=== PATIENT | male | born 1965 | race Two or more races ===

== ENCOUNTER 2016-05-05 01:46 | Inpatient (IN) | payer SELFPAY ==
[2016-05-05] MEDS ORDERED: HYDROMORPHONE HCL INJ/PF 2 MG/ML AMPULE IV ONE (03:32)
[2016-05-05] MEDS ORDERED: ONDANSETRON HCL INJ/PF 4 MG/2 ML SDV IV ONE (03:32)
[2016-05-05 03:46] LABS: ABSOLUTE BASOPHILS # (AUTO) 0.1 10^3/uL (0.0-0.2); ABSOLUTE EOSINOPHILS # (AUTO) 0.1 10^3/uL (0.0-0.6); ABSOLUTE LYMPHOCYTES (AUTO) 1.4 10^3/uL (0.5-4.7); ABSOLUTE MONOCYTES (AUTO) 0.6 10^3/uL (0.1-1.4); BASOPHILS % (AUTO) 0.5 % (0-2); EOSINOPHILS % (AUTO) 0.7 % (0-6); HEMATOCRIT 45.4 % (37.9-51.0); HEMOGLOBIN 15.3 g/dL (13.5-17.0); HGB HCT DIFFERENCE 0.5; LYMPHOCYTES % (AUTO) 12.5 % (13-45); MEAN CORPUSCULAR HEMOGLOBIN 27.6 pg (27.0-33.4); MEAN CORPUSCULAR HGB CONC 33.7 g/dL (32.0-36.0); MEAN CORPUSCULAR VOLUME 82 fl (80-97); MONOCYTES % (AUTO) 5.3 % (3-13); RED BLOOD COUNT 5.54 10^6/uL (4.35-5.55); RED CELL DISTRIBUTION WIDTH 14.2 % (11.5-14.0); WHITE BLOOD COUNT 11.1 10^3/uL (4.0-10.5)
[2016-05-05 03:57] LABS: ALANINE AMINOTRANSFERASE 60 U/L (21-72); ALBUMIN 4.2 g/dL (3.5-5.0); ALKALINE PHOSPHATASE 127 U/L (38-126); ANION GAP 16 (5-19); ASPARTATE AMINO TRANSFERASE 23 U/L (17-59); BILIRUBIN,TOTAL 0.7 mg/dL (0.2-1.3); BLOOD UREA NITROGEN 17 mg/dL (7-20); CALCIUM 9.8 mg/dL (8.4-10.2); CARBON DIOXIDE 26 mmol/L (22-30); CHLORIDE 99 mmol/L (98-107); CREATININE RESULT 0.53 mg/dL (0.52-1.25); GLUCOSE 291 mg/dL (75-110); POTASSIUM 4.4 mmol/L (3.6-5.0); SODIUM 141.2 mmol/L (137-145); TOTAL PROTEIN 7.4 g/dL (6.3-8.2)
--- NOTE | 2016-05-05 05:56 | ER Document Report ---
ED General - General Chief Complaint: Abdominal Pain Stated Complaint: ABDOMINAL PAIN Notes: Patient is a 50-year-old male who presents with complaint of abdominal pain, vomiting, and no bowel movement. He says his symptoms feel exactly like when he had a small bowel obstruction in October. Patient was admitted here and treated nonsurgically and did well. Patient says that the symptoms started around 11 AM. His abdomen became very distended. He has not passed any gas. He's been vomiting. No blood in his emesis. Last bowel movement was this morning before his symptoms started. He does have a history of previous abnormal surgery. He said many years ago and part of his large intestine removed. He is unsure why it was removed. TRAVEL OUTSIDE OF THE [place] IN LAST 30 DAYS: No - Related Data Allergies/Adverse Reactions: No Known Allergies Allergy (Verified 10/24/15 10:21) Past Medical History - General Information source: Patient - Social History Smoking Status: Unknown if Ever Smoked Chew tobacco use (# tins/day): No Frequency of alcohol use: Rare Drug Abuse: None Family History: Reviewed & Not Pertinent Patient has suicidal ideation: No Patient has homicidal ideation: No Past Surgical History: Reports: Hx Abdominal Surgery - resection, Hx Appendectomy - Immunizations Hx Diphtheria, Pertussis, Tetanus Vaccination: No Review of Systems - Review of Systems Notes: My Normal Review Basic REVIEW OF SYSTEMS: CONSTITUTIONAL : Denies fever, chills, or sweats. Denies recent illness. EENT: Denies eye, ear, throat, or mouth pain or symptoms. Denies nasal or sinus congestion. CARDIOVASCULAR: Denies chest pain. RESPIRATORY: Denies cough, cold, or chest congestion. Denies shortness of breath, difficulty breathing, or wheezing. GASTROINTESTINAL: Diffuse abdominal pain and distention. Some recurrent vomiting. MUSCULOSKELETAL: Denies neck or back pain or joint pain or swelling. SKIN: Denies rash or skin lesions. NEUROLOGICAL: Denies altered mental status or loss of consciousness. Denies headache. Denies weakness or paralysis or loss of use of either side. Denies problems with gait or speech. Denies sensory or motor loss. ALL OTHER SYSTEMS REVIEWED AND NEGATIVE. Physical Exam - Vital signs Vitals: Temp Pulse Resp BP Pulse Ox 97.4 F 98 20 129/77 H 100 05/05/16 03:16 05/05/16 03:16 05/05/16 03:16 05/05/16 03:16 05/05/16 03:16 - Notes Notes: General Appearance: Well nourished, alert, cooperative, no acute distress, no obvious discomfort. Vitals: reviewed, See vital signs table. Head: no swelling or tenderness to the head Eyes: PERRL, EOMI, Conjuctiva clear Mouth: No decreasd moisture Neck: Supple, no neck tenderness, Lungs: No wheezing, No rales, No rhonci, No accessory muscle use, good air exchange bilaterally. Heart: Normal rate, Regular rythm, No murmur, no rub Abdomen: Normal BS, soft, No rigidity, moderate diffuse abdominal tenderness, some distention, No guarding, no rebound, no abdominal masses, no organomegaly Extremities: strength 5/5 in all extremities, good pulses in all extremities, no swelling or tenderness in the extremities, no edema. Skin: warm, dry, appropriate color, no rash Neuro: speech clear, oriented x 3, normal affect, responds appropriately to questions. Course - Vital Signs Vital signs: Temp Pulse Resp BP Pulse Ox 97.4 F 98 20 129/77 H 100 05/05/16 03:16 05/05/16 03:16 05/05/16 03:16 05/05/16 03:16 05/05/16 03:16 - Laboratory Result Diagrams: 05/05/16 03:20 05/05/16 03:20 Laboratory results interpreted by me: 05/05/16 05/05/16 03:20 03:20 WBC 11.1 H RDW 14.2 H Seg Neutrophils % 81.0 H Lymphocytes % 12.5 L Absolute Neutrophils 9.0 H Glucose 291 H Alkaline Phosphatase 127 H - Transfer of Care Notes: 05/05/16 07:44 Patient appears to have a bowel obstruction both clinically and on CT scan. We' ll place an NG tube. I did speak with Dr. Holliday, general surgeon, who agrees to come evaluate the patient. Dictation of this chart was performed using voice recognition software; therefore, there may be some unintended grammatical errors. 05/05/16 07:55 Discharge - Discharge Clinical Impression: SBO (small bowel obstruction) Abdominal pain Qualifiers: Abdominal location: generalized Qualified Code(s): R10.84 - Generalized abdominal pain Nausea & vomiting Qualifiers: Vomiting type: unspecified Vomiting Intractability: non-intractable Qualified Code(s): R11.2 - Nausea with vomiting, unspecified Condition: Stable Disposition: ADMITTED INPATIENT Admitting Provider: Surgicalist Unit Admitted: Surgical Floor
[2016-05-05] MEDS ORDERED: NORMAL SALINE 1000 ML 1,000 ML IV ONE (07:42)
--- NOTE | 2016-05-05 08:27 | PDOC H&P ---
History of Present Illness Admission Date/PCP: 05/05/16 07:53 Patient complains of: Abdominal pain, distention History of Present Illness: OSMAR LANDRY is a 50 year old male is seen in the emergency department after being brought to the hospital by ground rescue complaining of acute onset abdominal pain, distention. Last bowel movement was last night. This is associated with nausea and several episodes of vomiting. Symptoms are identical to those associated with a partial small bowel obstruction presentation in October 2015. Patient was admitted to the surgical service, treated nonoperatively did well until last night. Patient denies history of trauma, intervening episodes of abdominal pain or nausea or vomiting. Does not have a local medical doctor. Past Medical History Endocrine Medical History: Reports: Diabetes Mellitus Type 2 Past Surgical History Past Surgical History: Reports: Appendectomy, Other - Exploratory laparotomy, bowel resection of uncertain location, 2000, [place] Social History Smoking Status: Unknown if Ever Smoked Cigarettes Packs Per Day: 20 Frequency of Alcohol Use: None Drugs: None Hx Prescription Drug Abuse: No Family History Family History: Reviewed & Not Pertinent, Other - There is no history of inflammatory bowel disease Parental Family History Reviewed: Yes Children Family History Reviewed: Yes Sibling(s) Family History Reviewed.: Yes Medication/Allergy Home Medications: Ibuprofen 800 mg PO Q8H PRN 10/24/15 Metformin HCl [Glucophage 500 mg Tablet] 500 mg PO BIDACBS #60 tablet 10/28/15 Allergies/Adverse Reactions: No Known Allergies Allergy (Verified 10/24/15 10:21) Physical Exam Vital Signs: Temp Pulse Resp BP Pulse Ox 97.9 F 88 16 130/81 H 99 05/05/16 07:43 05/05/16 07:43 05/05/16 07:43 05/05/16 07:43 05/05/16 07:43 General appearance: PRESENT: severe distress Head exam: PRESENT: normocephalic Eye exam: PRESENT: EOMI Ear exam: PRESENT: normal external ear exam Mouth exam: PRESENT: moist Teeth exam: PRESENT: poor dentation, other - Severe dental caries Neck exam: PRESENT: full ROM Respiratory exam: PRESENT: clear to auscultation payton Vascular exam: PRESENT: normal capillary refill GI/Abdominal exam: PRESENT: other - The midline scar well healed without hernia ; abdomen is moderately distended; positive abdomen. Mild guarding but no rigidity, no rebound tenderness. Rectal exam: PRESENT: deferred Musculoskeletal exam: PRESENT: ambulatory Neurological exam: PRESENT: alert, altered, awake Psychiatric exam: PRESENT: appropriate affect Results Impressions: Abdomen/Pelvis CT 05/05/16 00:00 IMPRESSION: 1. Multiple dilated with loops of small bowel are noted within the lower abdomen/pelvis could represent an area of focal partial small bowel obstruction versus an area of slow transit. The loops both distal are not completely decompressed prior to the new ileal colonic anastomosis. The loops proximal this region are not significantly dilated. No pneumoperitoneum or intra-abdominal fluid noted. No mass lesions. Overall appearance appears similar to the prior CT study. Prior right colectomy. 2. Ectopic left kidney, unchanged. Acute Abdomen Series 05/05/16 02:28 IMPRESSION: NO RADIOGRAPHIC EVIDENCE FOR ACUTE ABDOMINAL DISEASE. Assessment & Plan - Diagnosis (1) SBO (small bowel obstruction) Is this a current diagnosis for this admission?: YesPlan: 1. Second episode in 6 months; obstruction appears to be partial or incomplete , with site of obstruction distal small bowel, although this is somewhat vague 2. Will admit patient to surgical service, keep nothing by mouth, inserted nasogastric tube, resuscitate with IV fluids. 3. The patient does not improve clinically, then further evaluation including possible exporatory laparotomy may be required. (2) Hyperglycemia Is this a current diagnosis for this admission?: YesPlan: 1. Will place patient on sliding scale insulin management. (3) Smoker Is this a current diagnosis for this admission?: YesPlan: 1. To discuss smoking cessation while hospitalized. (4) Status post right colon removal Is this a current diagnosis for this admission?: YesPlan: 1. Remote history of right colon resection, similarly for benign disease. Patient does not appear to have a colonic obstruction. - Time Time Spent: 50 to 70 Minutes Critical Time spent with patient: 15-24 minutes - Inpatient Certification Medical Necessity: Need For IV Fluids, Need for Pain Control
[2016-05-05] MEDS: ONDANSETRON HCL INJ/PF 4 MG/2 ML SDV IV PRN ×2 (08:40→13:35)
[2016-05-05] MEDS: MORPHINE SULFATE 10 MG/ML INJ IV PRN ×2 (08:40→12:00)
[2016-05-05] MEDS: RINGERS SOLUTION,LACTATED 1,000 ML IV PRN ×4 (10:15→22:09)
[2016-05-05] MEDS: FAMOTIDINE INJ/PF 20 MG/2 ML SDV IV SCH ×2 (10:15→22:09)
[2016-05-05] MEDS ORDERED: INFLUENZA ADLT QUAD (36MOS+) 2016-17 VAC 0.5 ML SYR IM PRN (15:24)
[2016-05-06] MEDS: MORPHINE SULFATE 10 MG/ML INJ IV PRN ×2 (00:05→13:34)
--- NOTE | 2016-05-06 08:02 | PDOC PROGRESS REPORT ---
Subjective Progress Note for:: 05/06/16 Subjective:: Patient is feeling better, no nausea, improved abdominal pain. No fever. Physical Exam Vital Signs: Temp Pulse Resp BP Pulse Ox 98.1 F 91 18 131/76 H 98 05/06/16 00:06 05/06/16 00:06 05/06/16 00:06 05/06/16 00:06 05/06/16 00:06 Intake & Output 05/05/16 05/06/16 05/07/16 06:59 06:59 06:59 Intake Total 4311 Output Total 400 Balance 3911 Weight 63.5 kg General appearance: PRESENT: no acute distress, cooperative Head exam: PRESENT: atraumatic, normocephalic Respiratory exam: PRESENT: clear to auscultation payton GI/Abdominal exam: PRESENT: soft, tenderness - mild. ABSENT: firm, guarding, hernia, rigid Rectal exam: PRESENT: deferred Extremities exam: ABSENT: calf tenderness Results Impressions: Abdomen/Pelvis CT 05/05/16 00:00 IMPRESSION: 1. Multiple dilated with loops of small bowel are noted within the lower abdomen/pelvis could represent an area of focal partial small bowel obstruction versus an area of slow transit. The loops both distal are not completely decompressed prior to the new ileal colonic anastomosis. The loops proximal this region are not significantly dilated. No pneumoperitoneum or intra-abdominal fluid noted. No mass lesions. Overall appearance appears similar to the prior CT study. Prior right colectomy. 2. Ectopic left kidney, unchanged. Chest X-Ray 05/05/16 00:00 IMPRESSION: Repositioned nasogastric tube now looks more appropriate. Consider slight advancement. Acute Abdomen Series 05/05/16 02:28 IMPRESSION: NO RADIOGRAPHIC EVIDENCE FOR ACUTE ABDOMINAL DISEASE. Assessment & Plan - Diagnosis (1) Abdominal pain Qualifiers: Abdominal location: generalized Qualified Code(s): R10.84 - Generalized abdominal pain Is this a current diagnosis for this admission?: YesPlan: Improving. (2) SBO (small bowel obstruction) Is this a current diagnosis for this admission?: YesPlan: Patient is feeling better, + flatus last night, NGT output 350 ml over night. KUB this morning reveal oral contrast in the colon. Plan: Clamp NGT and check residual after 6 hours, OOB, ambulate, IV fluids. Strict ins /outs.
[2016-05-06] MEDS ORDERED: BISACODYL 10 MG SUPP.RECT PR ONE (09:00)
[2016-05-06] MEDS: FAMOTIDINE INJ/PF 20 MG/2 ML SDV IV SCH ×2 (09:41→21:59)
[2016-05-06] MEDS: BISACODYL 10 MG SUPP.RECT PR SCH (22:00)
[2016-05-06] MEDS: RINGERS SOLUTION,LACTATED 1,000 ML IV PRN (23:30)
[2016-05-07] MEDS: BISACODYL 10 MG SUPP.RECT PR SCH (09:41)
[2016-05-07] MEDS: FAMOTIDINE INJ/PF 20 MG/2 ML SDV IV SCH (09:41)
[2016-05-07 20:26] VITALS: BP 128/69
--- NOTE | 2016-05-07 20:32 | PDOC DISCHARGE SUMMARY ---
General - Admit/Disc Date/PCP Admission Date/Primary Care Provider: 05/05/16 08:11 Discharge Date: 05/07/16 - Discharge Diagnosis (1) SBO (small bowel obstruction) Is this a current diagnosis for this admission?: YesSummary: 50-year-old male admitted on 05/05/2016 with small bowel obstruction. NG tube was placed. Nothing by mouth. IV fluids. Patient's pain resolved. No further nausea or vomiting. NG tube was clamped and then removed. Diet was advanced. Patient tolerated well. The patient had bowel movement and was passing flatus and had no pain. Patient was discharged on 05/07/2016. (2) Smoker Is this a current diagnosis for this admission?: Yes (3) Status post right colon removal Is this a current diagnosis for this admission?: Yes - Additional Information Discharge Activity: Activity As Tolerated, Balance Activity w/Rest Home Medications: No Home Medications 05/05/16 History of Present Illness History of Present Illness: OSMAR LANDRY is a 50 year old male is seen in the emergency department after being brought to the hospital by ground rescue complaining of acute onset abdominal pain, distention. Last bowel movement was last night. This is associated with nausea and several episodes of vomiting. Symptoms are identical to those associated with a partial small bowel obstruction presentation in October 2015. Patient was admitted to the surgical service, treated nonoperatively did well until last night. Patient denies history of trauma, intervening episodes of abdominal pain or nausea or vomiting. Hospital Course Hospital Course: 50-year-old male admitted on 05/05/2016 with small bowel obstruction. NG tube was placed. Nothing by mouth. IV fluids. Patient's pain resolved. No further nausea or vomiting. NG tube was clamped and then removed. Diet was advanced. Patient tolerated well. The patient had bowel movement and was passing flatus and had no pain. Patient was discharged on 05/07/2016. Physical Exam Vital Signs: Temp Pulse Resp BP Pulse Ox 98.3 F 73 17 128/69 H 99 05/07/16 20:23 05/07/16 20:23 05/07/16 20:23 05/07/16 20:23 05/07/16 20:23 Intake & Output 05/06/16 05/07/16 05/08/16 06:59 06:59 06:59 Intake Total 4311 2200 1400 Output Total 400 Balance 3911 2200 1400 Weight 63.5 kg 64.2 kg General appearance: PRESENT: no acute distress Eye exam: PRESENT: EOMI Mouth exam: PRESENT: tongue midline Teeth exam: PRESENT: poor dentation Respiratory exam: PRESENT: unlabored GI/Abdominal exam: PRESENT: normal bowel sounds, soft. ABSENT: distended, tenderness Neurological exam: PRESENT: alert, oriented to person, oriented to place, oriented to time, oriented to situation Psychiatric exam: PRESENT: appropriate affect, normal mood Skin exam: ABSENT: jaundice Results Impressions: Abdomen/Pelvis CT 05/05/16 00:00 IMPRESSION: 1. Multiple dilated with loops of small bowel are noted within the lower abdomen/pelvis could represent an area of focal partial small bowel obstruction versus an area of slow transit. The loops both distal are not completely decompressed prior to the new ileal colonic anastomosis. The loops proximal this region are not significantly dilated. No pneumoperitoneum or intra-abdominal fluid noted. No mass lesions. Overall appearance appears similar to the prior CT study. Prior right colectomy. 2. Ectopic left kidney, unchanged. Chest X-Ray 05/05/16 00:00 IMPRESSION: Repositioned nasogastric tube now looks more appropriate. Consider slight advancement. Acute Abdomen Series 05/05/16 02:28 IMPRESSION: NO RADIOGRAPHIC EVIDENCE FOR ACUTE ABDOMINAL DISEASE. Abdomen X-Ray 05/06/16 07:00 IMPRESSION: Oral contrast given for CT exam 05/05/2016 is now in the transverse colon Few borderline dilated mid epigastric small bowel loops, less prominent than on plain films 05/05/2016. Plan Discharge Plan: Resume home meds; no changes to medications; no new medications. Continue soft/ mostly liquid diet. Ambulate frequently. Follow-up when necessary. Time Spent: Less than 30 Minutes - 25 minutes were spent on the day of discharge and patient care and discharge activity.
== END 2016-05-07 21:00 | disposition home or self-care (01) | DRG 390 ==
LOC: ER 01:46 → EH 07:53 → UNDOADMIN 07:53 → EH 08:11 → 4S 13:28
PROVIDERS: ATTEND Surgery
PROC: 0D9670Z Drainage of Stomach with Drainage Device, Via Natural or Artificial Opening (ICD-10-PCS; principal; 2016-05-05)
DX: K56.60 Unspecified intestinal obstruction (principal); Z98.0 Intestinal bypass and anastomosis status; E11.65 Type 2 diabetes mellitus with hyperglycemia; Z79.84 Long term (current) use of oral hypoglycemic drugs; Z90.49 Acquired absence of other specified parts of digestive tract; F17.210 Nicotine dependence, cigarettes, uncomplicated; Z91.018 Allergy to other foods
CPT/HCPCS: 36415; 71010; 74020; 74022; 74177; 80053; 82962; 83605; 83690; 85025; 90686; 96374; 96375; 99285; J1170; J2270; J2405; J7030; J7120; S0028

== ENCOUNTER 2017-06-07 23:09 | Inpatient (IN) | payer OTHER ==
[2017-06-07] MEDS ORDERED: NORMAL SALINE 1000 ML 1,000 ML IV ONE (23:41)
[2017-06-07] MEDS ORDERED: ONDANSETRON HCL INJ/PF 4 MG/2 ML SDV IV ONE (23:42)
[2017-06-08 00:05] LABS: ABSOLUTE BASOPHILS # (AUTO) 0.1 10^3/uL (0.0-0.2); ABSOLUTE EOSINOPHILS # (AUTO) 0.1 10^3/uL (0.0-0.6); ABSOLUTE LYMPHOCYTES (AUTO) 2.8 10^3/uL (0.5-4.7); ABSOLUTE MONOCYTES (AUTO) 0.5 10^3/uL (0.1-1.4); BASOPHILS % (AUTO) 1.1 % (0-2); EOSINOPHILS % (AUTO) 1.2 % (0-6); HEMATOCRIT 47.3 % (37.9-51.0); HEMOGLOBIN 16.4 g/dL (13.5-17.0); LYMPHOCYTES % (AUTO) 32.9 % (13-45); MEAN CORPUSCULAR HEMOGLOBIN 28.8 pg (27.0-33.4); MEAN CORPUSCULAR HGB CONC 34.6 g/dL (32.0-36.0); MEAN CORPUSCULAR VOLUME 83 fl (80-97); PLATELET COUNT 261 10^3/uL (150-450); RED CELL DISTRIBUTION WIDTH 13.9 % (11.5-14.0); SEGMENTED NEUTROPHILS % (AUTO) 58.8 % (42-78); TOTAL CELLS COUNTED % (AUTO) 100 %; WHITE BLOOD COUNT 8.4 10^3/uL (4.0-10.5)
[2017-06-08] MEDS: MORPHINE SULFATE 10 MG/ML INJ IV PRN ×6 (00:20→18:42)
[2017-06-08 00:24] LABS: ALANINE AMINOTRANSFERASE 53 U/L (21-72); ALBUMIN 4.8 g/dL (3.5-5.0); ALKALINE PHOSPHATASE 129 U/L (38-126); ANION GAP 13 (5-19); ASPARTATE AMINO TRANSFERASE 24 U/L (17-59); BILIRUBIN,DIRECT 0.2 mg/dL (0.0-0.4); BILIRUBIN,TOTAL 0.4 mg/dL (0.2-1.3); BLOOD UREA NITROGEN 14 mg/dL (7-20); CARBON DIOXIDE 25 mmol/L (22-30); CHLORIDE 99 mmol/L (98-107); GLUCOSE 316 mg/dL (75-110); LIPASE 196.2 U/L (23-300); POTASSIUM 4.1 mmol/L (3.6-5.0); SODIUM 136.7 mmol/L (137-145); TOTAL PROTEIN 7.7 g/dL (6.3-8.2)
[2017-06-08 00:30] LABS: APPEARANCE,URINE CLEAR; BILIRUBIN,URINE NEGATIVE (NEGATIVE); COLOR,URINE YELLOW; GLUCOSE, URINE >=500 mg/dL (NEGATIVE); KETONES,URINE 20 mg/dL (NEGATIVE); LEUKOCYTE ESTERASE,URINE NEGATIVE (NEGATIVE); NITRITE,URINE NEGATIVE (NEGATIVE); PROTEIN,URINE NEGATIVE (NEGATIVE); UROBILINOGEN,URINE NEGATIVE mg/dL (<2.0)
--- NOTE | 2017-06-08 00:51 | ER Document Report ---
ED General - General Chief Complaint: Abdominal Pain Stated Complaint: ABDOMINAL PAIN Time Seen by Provider: 06/07/17 23:41 Notes: Patient is a 51-year-old male with a past medical history of recurrent small bowel obstructions, a history of a partial right colon resection, as well as an appendectomy who presents with 24 hours of progressively worsening generalized abdominal pain with associated vomiting. Patient states that the symptoms started earlier today and have gotten progressively worse since that time. Nothing improves or worsens his symptoms. He notes the pain is a dull, aching, cramping pain. He has not seen his primary doctor regarding today's concerns. He states that this feels exactly the same as when he has had small bowel obstructions in the past. He denies any fever or constitutional symptoms. TRAVEL OUTSIDE OF THE [place] IN LAST 30 DAYS: No - Related Data Allergies/Adverse Reactions: Kiwi Allergy (Intermediate, Uncoded 05/05/16 16:25) Hives Past Medical History - General Information source: Patient - Social History Smoking Status: Current Every Day Smoker Frequency of alcohol use: None Drug Abuse: None Family History: Reviewed & Not Pertinent, Other - There is no history of inflammatory bowel disease Endocrine Medical History: Reports: Hx Diabetes Mellitus Type 2 Past Surgical History: Reports: Hx Abdominal Surgery - resection, Hx Appendectomy, Other - Exploratory laparotomy, bowel resection of uncertain location, [facility] - Immunizations Hx Diphtheria, Pertussis, Tetanus Vaccination: No Review of Systems - Review of Systems Notes: Constitutional: Negative for fever. HENT: Negative for sore throat. Eyes: Negative for visual changes. Cardiovascular: Negative for chest pain. Respiratory: Negative for shortness of breath. Gastrointestinal: Positive for abdominal pain and vomiting Genitourinary: Negative for dysuria. Musculoskeletal: Negative for back pain. Skin: Negative for rash. Neurological: Negative for headaches, weakness or numbness. 10 point ROS negative except as marked above and in HPI. Physical Exam - Vital signs Vitals: Temp Pulse Resp BP Pulse Ox 98.4 F 107 H 22 H 144/92 H 99 06/07/17 23:19 06/07/17 23:19 06/07/17 23:19 06/07/17 23:19 06/07/17 23:19 Interpretation: Hypertensive, Tachycardic Notes: PHYSICAL EXAMINATION: GENERAL: Appears moderately uncomfortable but in no acute distress HEAD: Atraumatic, normocephalic. EYES: Pupils equal round and reactive to light, extraocular movements intact, sclera anicteric, conjunctiva are normal. ENT: nares patent, oropharynx clear without exudates. Dry mucous membranes. NECK: Normal range of motion, supple without lymphadenopathy LUNGS: Breath sounds clear to auscultation bilaterally and equal. No wheezes rales or rhonchi. HEART: Regular rate and rhythm without murmurs ABDOMEN: Soft, distended, diffuse generalized mild tenderness without any areas of rebound or guarding. EXTREMITIES: Normal range of motion, no pitting or edema. No cyanosis. NEUROLOGICAL: No focal neurological deficits. Moves all extremities spontaneously and on command. PSYCH: Normal mood, normal affect. SKIN: Warm, Dry, normal turgor, no rashes or lesions noted. Course - Re-evaluation Re-evalutation: 06/08/17 00:50 Patient presents with acute onset of generalized abdominal pain with associated vomiting concerning for recurrence of a small bowel obstruction that he has had repeatedly in the past. Abdomen is slightly distended but bowel sounds are present. He does have generalized tenderness to palpation of the central abdomen. No rebound or guarding. Vitals are within normal limits at the time of my assessment that he was initially tachycardic at time of presentation. Will proceed with CT abdomen pelvis and reassess 06/08/17 02:08 CT abdomen pelvis as show findings consistent with my presumed diagnosis of a small bowel obstruction. Labs are otherwise overall unremarkable. I have contacted the surgeon [employer] who has accepted the patient for admission. NG tube will be placed. - Vital Signs Vital signs: Temp Pulse Resp BP Pulse Ox 98.4 F 107 H 22 H 144/92 H 99 06/07/17 23:19 06/07/17 23:19 06/07/17 23:19 06/07/17 23:19 06/07/17 23:19 - Laboratory Result Diagrams: 06/07/17 23:48 06/07/17 23:48 Laboratory results interpreted by me: 06/07/17 06/07/17 06/07/17 23:48 23:48 23:48 RBC 5.70 H Sodium 136.7 L Glucose 316 H Hemoglobin A1c % 11.7 H Alkaline Phosphatase 129 H Urine Glucose (UA) Urine Ketones 06/08/17 00:16 RBC Sodium Glucose Hemoglobin A1c % Alkaline Phosphatase Urine Glucose (UA) >=500 H Urine Ketones 20 H - Diagnostic Test Radiology reviewed: Reports reviewed Discharge - Discharge Clinical Impression: SBO (small bowel obstruction), Hyperglycemia Abdominal pain Qualifiers: Abdominal location: generalized Qualified Code(s): R10.84 - Generalized abdominal pain Nausea & vomiting Qualifiers: Vomiting type: unspecified Vomiting Intractability: non-intractable Qualified Code(s): R11.2 - Nausea with vomiting, unspecified Condition: Fair Disposition: ADMITTED INPATIENT Admitting Provider: Surgicalist - Appresai Unit Admitted: Surgical Floor
--- NOTE | 2017-06-08 01:54 | RADIOLOGY REPORT (SQ) ---
EXAM DESCRIPTION: CT ABD/PELVIS WITH IV ONLY COMPLETED DATE/TIME: 06/08/2017 1:27 am REASON FOR STUDY: eval sbo . Diffuse abdominal pain, prior appendectomy. COMPARISON: CT abdomen and pelvis 05/05/2016, 10/24/2015. TECHNIQUE: CT scan of the abdomen and pelvis performed using helical scanning technique with dynamic intravenous contrast injection. No oral contrast. Images reviewed with lung, soft tissue, and bone windows. Reconstructed coronal and sagittal MPR images reviewed. Delayed images for evaluation of the urinary system also acquired. All images stored on PACS. All CT scanners at this facility use dose modulation, iterative reconstruction, and/or weight based d osing when appropriate to reduce radiation dose to as low as reasonably achievable (ALARA). [facility]: Dose Right [facility]: CareDose [facility]: Dose Right [facility]: Teradose 4D [facility]: Modria CONTRAST TYPE AND DOSE: contrast/concentration: Isovue 370.00 mg/ml; Total Contrast Delivered: 64.0 ml; Total Saline Delivered: 66.0 ml RENAL FUNCTION: None required. The patient is less than 50 years old. RADIATION DOSE: CT Rad equipment meets quality standard of care and radiation dose reduction techniq ues were employed. CTDIvol: 5.2 mGy. DLP: 547 mGy-cm.. LIMITATIONS: None. FINDINGS: LOWER CHEST: Mild bibasilar atelectasis. No pleural effusion. LIVER: Normal size. No masses. No dilated ducts. SPLEEN: Normal size. PANCREAS: No significant calcifications. No adjacent inflammation or peripancreatic fluid collections . Pancreatic duct not dilated. GALLBLADDER: No identified stones by CT criteria. No inflammatory changes to suggest cholecystitis. ADRENAL GLANDS: No significant masses or asymmetry. RIGHT KIDNEY AND URETER: No significant calcifications. No hydronephrosis or hydroureter. 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 No significant calcifications. No hydronephrosis or hydroureter. AORTA AND VESSELS: No abdominal aortic aneurysm. RETROPERITONEUM: No retroperitoneal adenopathy, hemorrhage or masses. BOWEL AND PERITONEAL CAVITY: The stomach distended. There are multiple dilated small bowel loops wit h air-fluid levels. Feces like material distending the small bowel in the midline lower abdomen. Ch danielle in caliber of small bowel loops is seen anteriorly in the mid abdomen, to the right of the umbil icus. The distal small bowel is collapsed. Postsurgical changes are noted at bowel loops at the rig ht lower quadrant. APPENDIX: Surgically absent. PELVIS: The urinary bladder is partially distended. Coarse calcifications are seen at the prostate. No free fluid. ABDOMINAL WALL: Small fat containing umbilical hernia. BONES: No acute findings. IMPRESSION: 1. Multiple dilated small bowel loops with air-fluid levels and feces like material, wo rrisome for distal small bowel obstruction, probable transition point in the anterior midabdomen to t he right of the umbilicus. 2. Malrotated ectopic left kidney. TECHNICAL DOCUMENTATION: JOB ID: [id number] Quality ID # [id number]: Final reports with documentation of one or more dose reduction techniques (e.g., Au tomated exposure control, adjustment of the mA and/or kV according to patient size, use of iterative reconstruction technique) 2010 [employer]- All Rights Reserved
[2017-06-08] MEDS ORDERED: LIDOCAINE 2% VISCOUS SOLN 20 ML UDCUP PO ONE (02:07)
[2017-06-08] MEDS ORDERED: MIDAZOLAM 2 MG/2 ML INJ IV ONE (02:07)
--- NOTE | 2017-06-08 04:31 | RADIOLOGY REPORT (SQ) ---
EXAM DESCRIPTION: CHEST SINGLE VIEW COMPLETED DATE/TIME: 06/08/2017 4:02 am REASON FOR STUDY: NG placement COMPARISON: Chest x-ray 05/05/2016. CT abdomen and pelvis 06/08/2017. EXAM PARAMETERS: NUMBER OF VIEWS: One view. TECHNIQUE: Frontal radiographic view of the chest/upper abdomen acquired. RADIATION DOSE: NA LIMITATIONS: None. FINDINGS: LUNGS AND PLEURA: No consolidation, pneumothorax or pleural effusion. MEDIASTINUM AND HILAR STRUCTURES: No masses. Contour normal. HEART AND VASCULAR STRUCTURES: Heart normal in size. Normal vasculature. BONES: No acute findings. HARDWARE: Enteric tube with the tip at the right upper quadrant, in the region of the gastroduodenal junction. OTHER: Gaseous distension of the small bowel in the visualized abdomen. IMPRESSION: 1. No acute radiographic finding in the chest. 2. Enteric tube with the tip at the gastroduodenal junction. Persistent gaseous distension of the sm all bowel in the visualized abdomen. TECHNICAL DOCUMENTATION: JOB ID: [id number] [employer]- All Rights Reserved
[2017-06-08] MEDS ORDERED: NORMAL SALINE 1000 ML 1,000 ML IV PRN (07:19)
[2017-06-08] MEDS ORDERED: DEXTROSE 40% GEL 15 GM TUBE PO PRN ×2 (08:08)
[2017-06-08] MEDS ORDERED: DEXTROSE 50%-WATER 25 GM/50 ML DISP.SYRIN IV PRN ×2 (08:08)
[2017-06-08] MEDS ORDERED: GLUCAGON,HUMAN RECOMB 1 MG INJ SUBCUT PRN (08:08)
[2017-06-08] MEDS ORDERED: ONDANSETRON HCL INJ/PF 4 MG/2 ML SDV IV PRN ×2 (08:08→13:30)
--- NOTE | 2017-06-08 08:08 | PDOC H&P ---
History of Present Illness Admission Date/PCP: 06/08/17 02:23 Patient complains of: Colicky abdominal pain x 1 day History of Present Illness: OSMAR LANDRY is a 51 year old male previously admitted here about one year ago with adhesive partial small bowel obstruction who presents with colicky abdominal pain that started last night he also had a single episode of vomiting. The pain is periumbilical, rated as an 8-10 /10 in severity; it has improved slightly this morning. He had just one episode of vomiting last night, it was non bloody. He had a regular bowel movement yesterday evening. He does not report any fever. A CT abdomen performed in the ER showed some dilated small bowel loops with fecalization of the distal small bowel. He has a history of appendectomy performed in [facility] more than 20 yrs ago and a right hemicolectomy performed in [facility] in [place] for an infective process in 2000. This would be his third admission here since 2016 for partial small bowel obstruction. Past Medical History Endocrine Medical History: Reports: Diabetes Mellitus Type 2 Past Surgical History Past Surgical History: Reports: Appendectomy, Other - Exploratory laparotomy, right hemicolectomy for an infection 2000, [place] Social History Smoking Status: Current Every Day Smoker Frequency of Alcohol Use: Rare Hx Recreational Drug Use: No Drugs: None Hx Prescription Drug Abuse: No Family History Family History: Reviewed & Not Pertinent, Other - There is no history of inflammatory bowel disease Parental Family History Reviewed: No Children Family History Reviewed: Unknown Sibling(s) Family History Reviewed.: Unknown Medication/Allergy Allergies/Adverse Reactions: Kiwi Allergy (Intermediate, Uncoded 05/05/16 16:25) Dominique Review of Systems Constitutional: ABSENT: as per HPI, anorexia, chills, fatigue, fever(s), headache(s), night sweats, weakness, weight gain, weight loss, other Eyes: ABSENT: as per HPI, visual disturbances, other Ears: ABSENT: as per HPI, hearing changes, other Nose, Mouth, and Throat: ABSENT: as per HPI, headache(s), mouth pain, sore throat, vertigo, other Cardiovascular: ABSENT: as per HPI, chest pain, dyspnea on exertion, edema, orthropnea, palpitations, other Gastrointestinal: PRESENT: as per HPI Genitourinary: ABSENT: as per HPI, difficulty urinating, dysuria, hematuria, nocturia, other Musculoskeletal: ABSENT: as per HPI, back pain, deformity, joint swelling, muscle weakness, other Integumentary: ABSENT: as per HPI, diaphoresis, erythema, lesions, pruritus, rash, wounds, other Neurological: ABSENT: as per HPI, abnormal gait, abnormal movements, abnormal speech, confusion, convulsions, dizziness, focal weakness, frequent falls, lack of coordination, memory loss, numbness, paresthesias, restless legs, syncope, tingling, tremor(s), vertigo, weakness, other Psychiatric: ABSENT: as per HPI, anxiety, depression, hallucinations, homidical ideation, suicidal ideation, other Endocrine: ABSENT: as per HPI, cold intolerance, flushing, heat intolerance, menstrual abnormalities, polydipsia, polyphagia, polyuria, other Physical Exam Vital Signs: Temp Pulse Resp BP Pulse Ox 97.9 F 107 H 14 111/77 95 06/08/17 07:41 06/07/17 23:19 06/08/17 07:00 06/08/17 07:00 06/08/17 07:00 General appearance: PRESENT: cooperative, mild distress, other - NGT in place Head exam: PRESENT: atraumatic, normocephalic Eye exam: PRESENT: conjunctiva pink, EOMI Ear exam: PRESENT: normal external ear exam Respiratory exam: PRESENT: clear to auscultation payton, unlabored Cardiovascular exam: PRESENT: RRR, +S1, +S2 GI/Abdominal exam: PRESENT: other - Abdomen is mildly distended, there is a midline surgical scarextending from supraumbilical to suprapubic areas, abdomen is soft, nontender, no rigidity or guarding. Rectal exam: PRESENT: deferred Neurological exam: PRESENT: alert, awake, oriented to person, oriented to place , oriented to time, oriented to situation, CN II-XII grossly intact. ABSENT: motor sensory deficit Psychiatric exam: PRESENT: appropriate affect, normal mood. ABSENT: homicidal ideation, suicidal ideation Results Impressions: Abdomen/Pelvis CT 06/08/17 00:00 IMPRESSION: 1. Multiple dilated small bowel loops with air-fluid levels and feces like material, worrisome for distal small bowel obstruction, probable transition point in the anterior midabdomen to the right of the umbilicus. 2. Malrotated ectopic left kidney. Chest X-Ray 06/08/17 00:00 IMPRESSION: 1. No acute radiographic finding in the chest. 2. Enteric tube with the tip at the gastroduodenal junction. Persistent gaseous distension of the small bowel in the visualized abdomen. Assessment & Plan - Diagnosis (1) SBO (small bowel obstruction) Is this a current diagnosis for this admission?: Yes (2) Abdominal pain Qualifiers: Abdominal location: generalized Qualified Code(s): R10.84 - Generalized abdominal pain (3) Nausea & vomiting Qualifiers: Vomiting type: unspecified Vomiting Intractability: non-intractable Qualified Code(s): R11.2 - Nausea with vomiting, unspecified (5) Partial small bowel obstruction Is this a current diagnosis for this admission?: Yes - Time Time Spent: 30 to 50 Minutes Critical Time spent with patient: 15-24 minutes Medications reviewed and adjusted accordingly: Yes Anticipated discharge: Home - Plan Summary Plan Summary: The patient will be admitted for partial small bowel obstruction. Conservative management for now. He will be NPO. NGT to FRANSISCOWS IVFluids - 1/2NS +20meqKCl @ 125cc/hr Serial abdominal xrays and exams DVT prophylaxis Daily labs - CBC, chemistries Consult hospitalists for diabetic management
[2017-06-08] MEDS ORDERED: PHARMACY COMMUNICATION ORDER MC NR (08:15)
[2017-06-08] MEDS: ENOXAPARIN SODIUM INJ 40 MG/0.4 ML DISP.SYRIN SUBCUT SCH (09:40)
--- NOTE | 2017-06-08 09:59 | RADIOLOGY REPORT (SQ) ---
EXAM DESCRIPTION: KUB/ABDOMEN (SINGLE VIEW) COMPLETED DATE/TIME: 06/08/2017 9:33 am REASON FOR STUDY: Check Placement of NG Tube COMPARISON: CT abdomen pelvis 06/08/2017 alf NUMBER OF VIEWS: One view. TECHNIQUE: AP view of the chest and upper abdomen submitted LIMITATIONS: None. FINDINGS: Nasogastric tube tip and side port in the stomach. Low lung volumes with minimal bibasilar atelectasis. Right upper quadrant clips post partial right c olectomy. IMPRESSION: Nasogastric tube tip and side port in the stomach TECHNICAL DOCUMENTATION: JOB ID: [id number] [employer]- All Rights Reserved
[2017-06-08] MEDS ORDERED: INFLUENZA ADLT QUAD (36MOS+) 2017-18 VAC 0.5 ML SYR IM PRN (11:17)
[2017-06-08] MEDS ORDERED: DEXTROSE 40% GEL 15 GM TUBE NG PRN ×2 (13:30)
[2017-06-08] MEDS ORDERED: NICOTINE 21 MG/24 HR PATCH.TD24 TD PRN (18:43)
--- NOTE | 2017-06-08 18:43 | PDOC CONSULTATION ---
Consultation Consult Date: 06/08/17 Attending physician:: Dr Cisse Consult reason:: Management of diabetes History of Present Illness Admission Date/PCP: 06/08/17 02:23 History of Present Illness: OSMAR LANDRY is a 51 year old male previously admitted here about one year ago with adhesive partial small bowel obstruction who presents with colicky abdominal pain that started last night he also had a single episode of vomiting. The pain is periumbilical, rated as an 8-10 /10 in severity; it has improved slightly this morning. He had just one episode of vomiting last night, it was non bloody. He had a regular bowel movement yesterday evening. He does not report any fever. A CT abdomen performed in the ER showed some dilated small bowel loops with fecalization of the distal small bowel. Patient was admitted under the surgicalist team for further management of small bowel obstruction. The hospitalist service was consulted for the purpose of managing diabetes. Patient states that he has been suffering from diabetes for the past 2 years and that he does not take any medicines for that purpose Past Medical History Cardiac Medical History: Denies: Congestive Heart Failure, Myocardial Infarction, Hyperlipidema, Hypertension Pulmonary Medical History: Reports: None EENT Medical History: Reports: None Neurological Medical History: Reports: None Endocrine Medical History: Reports: Diabetes Mellitus Type 2 Renal/ Medical History: Reports: None Malignancy Medical History: Reports: None GI Medical History: Reports: None Musculoskeltal Medical History: Reports: None Skin Medical History: Reports: None Psychiatric Medical History: Reports: None Denies: Depression Traumatic Medical History: Reports: None Hematology: Reports: None Infectious Medical History: Reports: None Past Surgical History Past Surgical History: Reports: Appendectomy, Other - Exploratory laparotomy, right hemicolectomy for an infection 2000, [facility] History Information Source: Patient Lives with: Family Smoking Status: Current Every Day Smoker Cigarettes Packs Per Day: 1 Number of Years Smokin Last Time Smoked: TODAY Frequency of Alcohol Use: None Hx Recreational Drug Use: No Drugs: None Hx Prescription Drug Abuse: No Family History Family History: Reviewed & Not Pertinent, Other - There is no history of inflammatory bowel disease Parental Family History Reviewed: Yes Children Family History Reviewed: Yes Sibling(s) Family History Reviewed.: Yes Medication/Allergy Home Medications: No Home Medications 06/08/17 Allergies/Adverse Reactions: Kiwi Allergy (Intermediate, Uncoded 05/05/16 16:25) Hives Review of Systems Constitutional: ABSENT: fever(s), headache(s), night sweats, weakness Eyes: ABSENT: visual disturbances Ears: ABSENT: hearing changes Nose, Mouth, and Throat: ABSENT: mouth pain, sore throat Cardiovascular: ABSENT: chest pain, dyspnea on exertion, edema Respiratory: ABSENT: dyspnea Gastrointestinal: PRESENT: abdominal pain, nausea, vomiting Genitourinary: ABSENT: dysuria, hematuria Musculoskeletal: ABSENT: joint swelling Neurological: ABSENT: dizziness, focal weakness Physical Exam Vital Signs: Temp Pulse Resp BP Pulse Ox 98.0 F 73 20 126/69 H 99 06/08/17 15:30 06/08/17 15:30 06/08/17 15:30 06/08/17 15:30 06/08/17 15:30 Intake & Output 06/07/17 06/08/17 06/09/17 06:59 06:59 06:59 Weight 64.9 kg General appearance: PRESENT: no acute distress, cooperative, thin Head exam: PRESENT: atraumatic, normocephalic Eye exam: PRESENT: EOMI, PERRLA Ear exam: PRESENT: normal external ear exam Mouth exam: PRESENT: moist Neck exam: PRESENT: full ROM. ABSENT: JVD, lymphadenopathy, tenderness Respiratory exam: PRESENT: clear to auscultation payton Cardiovascular exam: PRESENT: RRR. ABSENT: diastolic murmur, systolic murmur Vascular exam: PRESENT: normal capillary refill GI/Abdominal exam: PRESENT: guarding, hypoactive bowel sounds, tenderness Rectal exam: PRESENT: deferred Extremities exam: ABSENT: clubbing, full ROM Musculoskeletal exam: PRESENT: ambulatory Neurological exam: PRESENT: alert, awake, oriented to person, oriented to place , oriented to time, oriented to situation, CN II-XII grossly intact Psychiatric exam: PRESENT: appropriate affect, normal mood Skin exam: PRESENT: intact, normal color Results Impressions: Abdomen/Pelvis CT 06/08/17 00:00 IMPRESSION: 1. Multiple dilated small bowel loops with air-fluid levels and feces like material, worrisome for distal small bowel obstruction, probable transition point in the anterior midabdomen to the right of the umbilicus. 2. Malrotated ectopic left kidney. Chest X-Ray 06/08/17 00:00 IMPRESSION: 1. No acute radiographic finding in the chest. 2. Enteric tube with the tip at the gastroduodenal junction. Persistent gaseous distension of the small bowel in the visualized abdomen. KUB X-Ray 06/08/17 08:13 IMPRESSION: Nasogastric tube tip and side port in the stomach Assessment & Plan - Diagnosis (1) Diabetes Qualifiers: Diabetes mellitus type: type 2 Diabetes mellitus complication status: without complication Diabetes mellitus senior living insulin use: without rodent exterminator use Qualified Code(s): E11.9 - Type 2 diabetes mellitus without complications Is this a current diagnosis for this admission?: Yes Plan: Will monitor blood sugar every 6 hours since n.p.o. and will place patient on Humalog sliding scale (2) SBO (small bowel obstruction) Is this a current diagnosis for this admission?: Yes Plan: As per primary team (3) Smoker Is this a current diagnosis for this admission?: Yes Plan: Will place patient on nicotine patch. - Time Time Spent: 50 to 70 Minutes Medications reviewed and adjusted accordingly: Yes Anticipated discharge: Home
[2017-06-08] MEDS ORDERED: METOCLOPRAMIDE HCL INJ/PF 10 MG/2 ML SDV IV ONE (19:30)
[2017-06-08] MEDS: POTASSI CL 20 MEQ/1/2NS 1L 20 MEQ/1,000 ML RTUINJ IV PRN (20:03)
[2017-06-09] MEDS: METOCLOPRAMIDE HCL INJ/PF 10 MG/2 ML SDV IV SCH ×5 (00:19→23:46)
[2017-06-09] MEDS: INSULIN LISPRO 100 UNIT/ML 3 ML VIAL SUBCUT PRN ×4 (00:19→18:09)
[2017-06-09] MEDS: MORPHINE SULFATE 10 MG/ML INJ IV PRN ×3 (00:40→12:14)
[2017-06-09] MEDS: POTASSI CL 20 MEQ/1/2NS 1L 20 MEQ/1,000 ML RTUINJ IV PRN ×3 (04:15→21:52)
[2017-06-09 06:34] LABS: ABSOLUTE BASOPHILS # (AUTO) 0.1 10^3/uL (0.0-0.2); ABSOLUTE EOSINOPHILS # (AUTO) 0.1 10^3/uL (0.0-0.6); ABSOLUTE LYMPHOCYTES (AUTO) 2.3 10^3/uL (0.5-4.7); ABSOLUTE MONOCYTES (AUTO) 0.5 10^3/uL (0.1-1.4); ABSOLUTE NEUT (AUTO) 4.5 10^3/uL (1.7-8.2); BASOPHILS % (AUTO) 0.8 % (0-2); EOSINOPHILS % (AUTO) 1.2 % (0-6); HEMOGLOBIN 14.5 g/dL (13.5-17.0); LYMPHOCYTES % (AUTO) 30.7 % (13-45); MEAN CORPUSCULAR HEMOGLOBIN 28.8 pg (27.0-33.4); MEAN CORPUSCULAR HGB CONC 34.6 g/dL (32.0-36.0); MEAN CORPUSCULAR VOLUME 83 fl (80-97); MONOCYTES % (AUTO) 6.3 % (3-13); PLATELET COUNT 217 10^3/uL (150-450); RED BLOOD COUNT 5.04 10^6/uL (4.35-5.55); RED CELL DISTRIBUTION WIDTH 13.5 % (11.5-14.0); TOTAL CELLS COUNTED % (AUTO) 100 %; WHITE BLOOD COUNT 7.4 10^3/uL (4.0-10.5)
[2017-06-09 07:28] LABS: ANION GAP 8 (5-19); BLOOD UREA NITROGEN 8 mg/dL (7-20); CALCIUM 8.8 mg/dL (8.4-10.2); CARBON DIOXIDE 26 mmol/L (22-30); CHLORIDE 101 mmol/L (98-107); GLUCOSE 195 mg/dL (75-110); POTASSIUM 4.2 mmol/L (3.6-5.0)
--- NOTE | 2017-06-09 07:56 | PDOC PROGRESS REPORT ---
Subjective Progress Note for:: 06/09/17 Subjective:: The patient feels better today. Pain has abated. He passed flatus a lot > 10x, large volumes. Reason For Visit: PARTIAL SMALL BOWEL OBSTRUCTION Physical Exam Vital Signs: Temp Pulse Resp BP Pulse Ox 97.8 F 80 14 122/75 97 06/09/17 04:00 06/09/17 04:00 06/09/17 04:00 06/09/17 04:00 06/09/17 04:00 Intake & Output 06/08/17 06/09/17 06/10/17 06:59 06:59 06:59 Intake Total 1400 Output Total 1200 Balance 200 Weight 68.4 kg General appearance: PRESENT: no acute distress Head exam: PRESENT: normocephalic Eye exam: PRESENT: conjunctiva pink, EOMI Throat exam: PRESENT: other - NGT in place - little drainage presently Respiratory exam: PRESENT: clear to auscultation payton, unlabored Cardiovascular exam: PRESENT: RRR, +S1, +S2 GI/Abdominal exam: PRESENT: normal bowel sounds, soft, other - midline surgical scar. Abdomen is nontender Neurological exam: PRESENT: alert, awake, oriented to person, oriented to place , oriented to time, oriented to situation, CN II-XII grossly intact Results Laboratory Results: 06/09/17 06:15 06/09/17 06:15 06/09/17 06/09/17 06:15 06:15 WBC 7.4 RBC 5.04 Hgb 14.5 Hct 42.0 MCV 83 MCH 28.8 MCHC 34.6 RDW 13.5 Plt Count 217 Seg Neutrophils % 61.0 Lymphocytes % 30.7 Monocytes % 6.3 Eosinophils % 1.2 Basophils % 0.8 Absolute Neutrophils 4.5 Absolute Lymphocytes 2.3 Absolute Monocytes 0.5 Absolute Eosinophils 0.1 Absolute Basophils 0.1 Sodium 135.0 L Potassium 4.2 Chloride 101 Carbon Dioxide 26 Anion Gap 8 BUN 8 Creatinine 0.56 Est GFR ( Amer) > 60 Est GFR (Non-Af Amer) > 60 Glucose 195 H Calcium 8.8 Impressions: Abdomen/Pelvis CT 06/08/17 00:00 IMPRESSION: 1. Multiple dilated small bowel loops with air-fluid levels and feces like material, worrisome for distal small bowel obstruction, probable transition point in the anterior midabdomen to the right of the umbilicus. 2. Malrotated ectopic left kidney. Chest X-Ray 06/08/17 00:00 IMPRESSION: 1. No acute radiographic finding in the chest. 2. Enteric tube with the tip at the gastroduodenal junction. Persistent gaseous distension of the small bowel in the visualized abdomen. KUB X-Ray 06/08/17 08:13 IMPRESSION: Nasogastric tube tip and side port in the stomach Assessment & Plan - Diagnosis (1) SBO (small bowel obstruction) Is this a current diagnosis for this admission?: Yes (2) Abdominal pain Qualifiers: Abdominal location: generalized Qualified Code(s): R10.84 - Generalized abdominal pain (3) Nausea & vomiting Qualifiers: Vomiting type: unspecified Vomiting Intractability: non-intractable Qualified Code(s): R11.2 - Nausea with vomiting, unspecified (5) Partial small bowel obstruction Is this a current diagnosis for this admission?: Yes - Time Time Spent with patient: 15-24 minutes Medications reviewed and adjusted accordingly: Yes Anticipated discharge: Home Within: within 24 hours - Plan Summary Plan Summary: Resolved partial small bowel obstruction Will DC NGT Comence clear liquids po.
--- NOTE | 2017-06-09 08:15 | RADIOLOGY REPORT (SQ) ---
EXAM DESCRIPTION: ACUTE ABDOMEN SERIES COMPLETED DATE/TIME: 06/09/2017 8:03 am REASON FOR STUDY: partial small bowel obstruction COMPARISON: CT abdomen pelvis 10/24/2015, 06/08/2017 Abdominal films 10/26/2015, 05/05/2016, 05/06/2016, 06/08/2017 NUMBER OF VIEWS: Three views. TECHNIQUE: Frontal chest, supine abdomen and upright abdomen radiographic images acquired. LIMITATIONS: None. FINDINGS: CHEST: There is mild bibasilar bandlike atelectasis. No pleural effusion. No pneumothorax. No cardiomegaly. Loren, bony structures unremarkable. FREE AIR: None. No abnormal gas collections. BOWEL GAS PATTERN: There are few nondistended small bowel loops in the mid epigastrium with air-fluid levels. Stomach, colon decompressed. Old surgical clips right upper quadrant post right hemicolect bouchra. CALCIFICATIONS: No suspicious calcifications. HARDWARE: Old surgical clips right upper quadrant post right hemicolectomy SOFT TISSUES: No gross mass or suggestion of organomegaly. BONES: No acute fracture. No worrisome bone lesions. OTHER: No other significant finding. IMPRESSION: Nasogastric tube is been removed. Stomach decompressed. Few air-fluid levels in nondistended mid epigastric small bowel loops. Bibasilar airspace disease likely atelectasis TECHNICAL DOCUMENTATION: JOB ID: [id number]- All Rights Reserved
[2017-06-09] MEDS: ENOXAPARIN SODIUM INJ 40 MG/0.4 ML DISP.SYRIN SUBCUT SCH (10:42)
--- NOTE | 2017-06-09 14:27 | PDOC PROGRESS REPORT ---
Subjective Progress Note for:: 06/09/17 Subjective:: Patient refers that feels better and had been passing gas. Review of system All organ systems evaluated and negative except as in subjective All significant laboratories and diagnostics have been reviewed Reason For Visit: PARTIAL SMALL BOWEL OBSTRUCTION Physical Exam Vital Signs: Temp Pulse Resp BP Pulse Ox 97.8 F 80 14 122/75 97 06/09/17 04:00 06/09/17 04:00 06/09/17 04:00 06/09/17 04:00 06/09/17 04:00 Intake & Output 06/08/17 06/09/17 06/10/17 06:59 06:59 06:59 Intake Total 1400 Output Total 1200 Balance 200 Weight 68.4 kg General appearance: PRESENT: no acute distress, cooperative, thin Head exam: PRESENT: atraumatic, normocephalic Eye exam: PRESENT: conjunctiva pink, EOMI, PERRLA Mouth exam: PRESENT: moist Neck exam: PRESENT: full ROM. ABSENT: JVD, lymphadenopathy Respiratory exam: PRESENT: clear to auscultation payton Cardiovascular exam: PRESENT: RRR. ABSENT: systolic murmur Vascular exam: PRESENT: normal capillary refill Neurological exam: PRESENT: alert, awake, oriented to person, oriented to place , oriented to time, oriented to situation, CN II-XII grossly intact Psychiatric exam: PRESENT: appropriate affect, normal mood Results Laboratory Results: 06/09/17 06:15 06/09/17 06:15 WBC 7.4 RBC 5.04 Hgb 14.5 Hct 42.0 MCV 83 MCH 28.8 MCHC 34.6 RDW 13.5 Plt Count 217 Seg Neutrophils % 61.0 Lymphocytes % 30.7 Monocytes % 6.3 Eosinophils % 1.2 Basophils % 0.8 Absolute Neutrophils 4.5 Absolute Lymphocytes 2.3 Absolute Monocytes 0.5 Absolute Eosinophils 0.1 Absolute Basophils 0.1 Impressions: Abdomen/Pelvis CT 06/08/17 00:00 IMPRESSION: 1. Multiple dilated small bowel loops with air-fluid levels and feces like material, worrisome for distal small bowel obstruction, probable transition point in the anterior midabdomen to the right of the umbilicus. 2. Malrotated ectopic left kidney. Chest X-Ray 06/08/17 00:00 IMPRESSION: 1. No acute radiographic finding in the chest. 2. Enteric tube with the tip at the gastroduodenal junction. Persistent gaseous distension of the small bowel in the visualized abdomen. KUB X-Ray 06/08/17 08:13 IMPRESSION: Nasogastric tube tip and side port in the stomach Assessment & Plan - Diagnosis (1) Diabetes Qualifiers: Diabetes mellitus type: type 2 Diabetes mellitus complication status: without complication Diabetes mellitus assisted insulin use: without termite technician use Qualified Code(s): E11.9 - Type 2 diabetes mellitus without complications Is this a current diagnosis for this admission?: Yes Plan: This patient likely will be discharged soon will start Glucophage while in- house. Will continue with Humalog sliding scale. (2) SBO (small bowel obstruction) Is this a current diagnosis for this admission?: Yes Plan: As per primary team (3) Smoker Is this a current diagnosis for this admission?: Yes Plan: Continue nicotine patch. - Time Time Spent with patient: Less than 15 minutes Medications reviewed and adjusted accordingly: Yes
[2017-06-09] MEDS ORDERED: METFORMIN HCL 500 MG TABLET PO SCH (16:00)
[2017-06-09] MEDS ORDERED: ACETAMINOPHEN WITH CODEINE #3 TABLET PO PRN (19:51)
[2017-06-10] MEDS: METOCLOPRAMIDE HCL INJ/PF 10 MG/2 ML SDV IV SCH ×2 (06:02→12:53)
[2017-06-10 07:22] LABS: ABSOLUTE EOSINOPHILS # (AUTO) 0.1 10^3/uL (0.0-0.6); ABSOLUTE LYMPHOCYTES (AUTO) 1.7 10^3/uL (0.5-4.7); ABSOLUTE MONOCYTES (AUTO) 0.4 10^3/uL (0.1-1.4); ABSOLUTE NEUT (AUTO) 4.1 10^3/uL (1.7-8.2); BASOPHILS % (AUTO) 0.4 % (0-2); EOSINOPHILS % (AUTO) 1.3 % (0-6); HEMATOCRIT 42.2 % (37.9-51.0); HEMOGLOBIN 14.7 g/dL (13.5-17.0); LYMPHOCYTES % (AUTO) 26.9 % (13-45); MEAN CORPUSCULAR HEMOGLOBIN 29.1 pg (27.0-33.4); MEAN CORPUSCULAR HGB CONC 34.8 g/dL (32.0-36.0); MEAN CORPUSCULAR VOLUME 84 fl (80-97); MONOCYTES % (AUTO) 5.7 % (3-13); PLATELET COUNT 219 10^3/uL (150-450); RED BLOOD COUNT 5.06 10^6/uL (4.35-5.55); RED CELL DISTRIBUTION WIDTH 13.6 % (11.5-14.0); SEGMENTED NEUTROPHILS % (AUTO) 65.7 % (42-78); TOTAL CELLS COUNTED % (AUTO) 100 %; WHITE BLOOD COUNT 6.3 10^3/uL (4.0-10.5)
[2017-06-10 07:30] LABS: ANION GAP 8 (5-19); BLOOD UREA NITROGEN 6 mg/dL (7-20); CALCIUM 9.3 mg/dL (8.4-10.2); CARBON DIOXIDE 26 mmol/L (22-30); CHLORIDE 102 mmol/L (98-107); GLUCOSE 203 mg/dL (75-110); POTASSIUM 4.5 mmol/L (3.6-5.0); SODIUM 136.1 mmol/L (137-145)
--- NOTE | 2017-06-10 07:52 | RADIOLOGY REPORT (SQ) ---
EXAM DESCRIPTION: ACUTE ABDOMEN SERIES COMPLETED DATE/TIME: 06/10/2017 7:38 am REASON FOR STUDY: partial small bowel obstruction COMPARISON: 06/09/2017 NUMBER OF VIEWS: Three views. TECHNIQUE: Frontal chest, supine abdomen and upright/decubitus abdomen radiographic images acquired. LIMITATIONS: None. FINDINGS: CHEST: Interval resolution of bibasilar atelectasis. No pneumoperitoneum. Heart and pulm onary vasculature normal. BOWEL GAS PATTERN: No significant change in bowel-gas pattern from prior study 06/09/2017. Persistent mild dilatation of small bowel loops left mid abdomen the essentially unchanged scattered gas within the colon to the rectum. Changes of right hemicolectomy. HARDWARE: Surgical clips right abdomen from prior hemicolectomy BONES: No acute fracture. No worrisome bone lesions. IMPRESSION: Interval resolution of bibasilar atelectasis. Nonspecific bowel-gas pattern with no sig nificant interval change. TECHNICAL DOCUMENTATION: JOB ID: [id number] [employer]- All Rights Reserved
[2017-06-10] MEDS: ENOXAPARIN SODIUM INJ 40 MG/0.4 ML DISP.SYRIN SUBCUT SCH (09:12)
[2017-06-10] MEDS: METFORMIN HCL 500 MG TABLET PO SCH ×2 (09:12→13:37)
--- NOTE | 2017-06-10 12:00 | PDOC PROGRESS REPORT ---
Subjective Progress Note for:: 06/10/17 Subjective:: Had been able to use the bathroom. Review of system All organ systems evaluated and negative except as in subjective All significant laboratories and diagnostics have been reviewed Reason For Visit: PARTIAL SMALL BOWEL OBSTRUCTION Physical Exam Vital Signs: Temp Pulse Resp BP Pulse Ox 97.8 F 88 18 127/82 H 98 06/10/17 04:02 06/10/17 04:02 06/10/17 04:02 06/10/17 04:02 06/10/17 04:02 Intake & Output 06/09/17 06/10/17 06/11/17 06:59 06:59 06:59 Intake Total 1400 1880 Output Total 1200 1500 Balance 200 380 Weight 68.4 kg 68.8 kg General appearance: PRESENT: cooperative, thin Head exam: PRESENT: atraumatic, normocephalic Eye exam: PRESENT: EOMI, PERRLA Ear exam: PRESENT: normal external ear exam Mouth exam: PRESENT: moist Neck exam: PRESENT: full ROM. ABSENT: JVD, lymphadenopathy, tenderness Respiratory exam: PRESENT: clear to auscultation payton Cardiovascular exam: PRESENT: RRR. ABSENT: diastolic murmur, systolic murmur Vascular exam: PRESENT: normal capillary refill GI/Abdominal exam: PRESENT: normal bowel sounds, soft. ABSENT: tenderness Extremities exam: PRESENT: full ROM. ABSENT: pedal edema Musculoskeletal exam: PRESENT: ambulatory Neurological exam: PRESENT: alert, awake, oriented to person, oriented to place , oriented to time, oriented to situation, CN II-XII grossly intact Psychiatric exam: PRESENT: appropriate affect, normal mood Skin exam: PRESENT: intact, normal color Results Laboratory Results: 06/10/17 06:48 06/10/17 06:48 06/10/17 06/10/17 06:48 06:48 WBC 6.3 RBC 5.06 Hgb 14.7 Hct 42.2 MCV 84 MCH 29.1 MCHC 34.8 RDW 13.6 Plt Count 219 Seg Neutrophils % 65.7 Lymphocytes % 26.9 Monocytes % 5.7 Eosinophils % 1.3 Basophils % 0.4 Absolute Neutrophils 4.1 Absolute Lymphocytes 1.7 Absolute Monocytes 0.4 Absolute Eosinophils 0.1 Absolute Basophils 0.0 Sodium 136.1 L Potassium 4.5 Chloride 102 Carbon Dioxide 26 Anion Gap 8 BUN 6 L Creatinine 0.50 L Est GFR ( Amer) > 60 Est GFR (Non-Af Amer) > 60 Glucose 203 H Calcium 9.3 Impressions: Abdomen/Pelvis CT 06/08/17 00:00 IMPRESSION: 1. Multiple dilated small bowel loops with air-fluid levels and feces like material, worrisome for distal small bowel obstruction, probable transition point in the anterior midabdomen to the right of the umbilicus. 2. Malrotated ectopic left kidney. Chest X-Ray 06/08/17 00:00 IMPRESSION: 1. No acute radiographic finding in the chest. 2. Enteric tube with the tip at the gastroduodenal junction. Persistent gaseous distension of the small bowel in the visualized abdomen. KUB X-Ray 06/08/17 08:13 IMPRESSION: Nasogastric tube tip and side port in the stomach Assessment & Plan - Diagnosis (1) Diabetes Qualifiers: Diabetes mellitus type: type 2 Diabetes mellitus complication status: without complication Diabetes mellitus usp insulin use: without usp use Qualified Code(s): E11.9 - Type 2 diabetes mellitus without complications Is this a current diagnosis for this admission?: Yes Plan: Educated patient about diabetes and and its complications. Encourage for him to get a physician to follow-up. Strongly encouraged as to quit smoking. A prescription for metformin 500 mg [address] p[address] on the chart available upon discharge (2) SBO (small bowel obstruction) Is this a current diagnosis for this admission?: Yes Plan: As per primary team (3) Smoker Is this a current diagnosis for this admission?: Yes Plan: Continue nicotine patch. Educated about quitting smoking - Time Time Spent with patient: Less than 15 minutes Medications reviewed and adjusted accordingly: Yes Anticipated discharge: Home
--- NOTE | 2017-06-10 13:34 | PDOC PROGRESS REPORT ---
Subjective Progress Note for:: 06/10/17 Subjective:: The patient feels better today. Pain has abated. He passed flatus a lot > 10x, large volumes. He also had a good bowel movement today and he has been tolerating an 1800 ADA diet. Xray shows nonspecific bowel gas pattern. Reason For Visit: PARTIAL SMALL BOWEL OBSTRUCTION Physical Exam Vital Signs: Temp Pulse Resp BP Pulse Ox 98.4 F 68 16 126/70 H 100 06/10/17 11:46 06/10/17 11:46 06/10/17 11:46 06/10/17 11:46 06/10/17 11:46 Intake & Output 06/09/17 06/10/17 06/11/17 06:59 06:59 06:59 Intake Total 1400 1880 Output Total 1200 1500 Balance 200 380 Weight 68.4 kg 68.8 kg General appearance: PRESENT: no acute distress Head exam: PRESENT: atraumatic, normocephalic Eye exam: PRESENT: conjunctiva pink, EOMI, PERRLA. ABSENT: scleral icterus Ear exam: PRESENT: normal external ear exam Neck exam: ABSENT: carotid bruit, JVD, lymphadenopathy, thyromegaly Respiratory exam: PRESENT: clear to auscultation payton. ABSENT: rales, rhonchi, wheezes Cardiovascular exam: PRESENT: RRR. ABSENT: diastolic murmur, rubs, systolic murmur GI/Abdominal exam: PRESENT: normal bowel sounds, soft, other - Midline surgical scar. ABSENT: distended, guarding, mass, organolmegaly, rebound, tenderness Neurological exam: PRESENT: alert, awake, oriented to person, oriented to place , oriented to time, oriented to situation, CN II-XII grossly intact. ABSENT: motor sensory deficit Psychiatric exam: PRESENT: appropriate affect, normal mood. ABSENT: homicidal ideation, suicidal ideation Results Laboratory Results: 06/10/17 06:48 06/10/17 06:48 06/10/17 06/10/17 06:48 06:48 WBC 6.3 RBC 5.06 Hgb 14.7 Hct 42.2 MCV 84 MCH 29.1 MCHC 34.8 RDW 13.6 Plt Count 219 Seg Neutrophils % 65.7 Lymphocytes % 26.9 Monocytes % 5.7 Eosinophils % 1.3 Basophils % 0.4 Absolute Neutrophils 4.1 Absolute Lymphocytes 1.7 Absolute Monocytes 0.4 Absolute Eosinophils 0.1 Absolute Basophils 0.0 Sodium 136.1 L Potassium 4.5 Chloride 102 Carbon Dioxide 26 Anion Gap 8 BUN 6 L Creatinine 0.50 L Est GFR ( Amer) > 60 Est GFR (Non-Af Amer) > 60 Glucose 203 H Calcium 9.3 Impressions: Abdomen/Pelvis CT 06/08/17 00:00 IMPRESSION: 1. Multiple dilated small bowel loops with air-fluid levels and feces like material, worrisome for distal small bowel obstruction, probable transition point in the anterior midabdomen to the right of the umbilicus. 2. Malrotated ectopic left kidney. Chest X-Ray 06/08/17 00:00 IMPRESSION: 1. No acute radiographic finding in the chest. 2. Enteric tube with the tip at the gastroduodenal junction. Persistent gaseous distension of the small bowel in the visualized abdomen. KUB X-Ray 06/08/17 08:13 IMPRESSION: Nasogastric tube tip and side port in the stomach Acute Abdomen Series 06/10/17 05:00 IMPRESSION: Interval resolution of bibasilar atelectasis. Nonspecific bowel- gas pattern with no significant interval change. Assessment & Plan - Diagnosis (1) SBO (small bowel obstruction) Is this a current diagnosis for this admission?: Yes (2) Abdominal pain Qualifiers: Abdominal location: generalized Qualified Code(s): R10.84 - Generalized abdominal pain (3) Nausea & vomiting Qualifiers: Vomiting type: unspecified Vomiting Intractability: non-intractable Qualified Code(s): R11.2 - Nausea with vomiting, unspecified (5) Partial small bowel obstruction Is this a current diagnosis for this admission?: Yes - Time Time Spent with patient: 25-34 minutes Total Critical Time (Minutes): 20 Medications reviewed and adjusted accordingly: Yes Anticipated discharge: Home Within: within 24 hours - Plan Summary Plan Summary: The partial small bowel obstruction has resolved and the patient will be discharged home today.
[2017-06-10] MEDS: INSULIN LISPRO 100 UNIT/ML 3 ML VIAL SUBCUT PRN (13:37)
--- NOTE | 2017-06-10 13:43 | PDOC DISCHARGE SUMMARY ---
General - Admit/Disc Date/PCP Admission Date/Primary Care Provider: 06/08/17 02:23 Discharge Date: 06/10/17 - Discharge Diagnosis (1) SBO (small bowel obstruction) Is this a current diagnosis for this admission?: Yes (5) Partial small bowel obstruction Is this a current diagnosis for this admission?: Yes - Additional Information Discharge Diet: Diabetic Discharge Activity: Activity As Tolerated Prescriptions: Metformin HCl 500 mg PO TID #90 tablet Home Medications: Metformin HCl 500 mg PO TID #90 tablet 06/10/17 History of Present Illness History of Present Illness: OSMAR LANDRY is a 51 year old male previously admitted here about one year ago with adhesive partial small bowel obstruction who presents with colicky abdominal pain that started last night he also had a single episode of vomiting. The pain is periumbilical, rated as an 8-10 /10 in severity; it has improved slightly this morning. He had just one episode of vomiting last night, it was non bloody. He had a regular bowel movement yesterday evening. He does not report any fever. A CT abdomen performed in the ER showed some dilated small bowel loops with fecalization of the distal small bowel. He has a history of appendectomy performed in [facility] more than 20 yrs ago and a right hemicolectomy performed in [facility] in [place] for an infective process in 2000. This would be his third admission here since 2016 for partial small bowel obstruction. Hospital Course Hospital Course: The patient was managed conservatively with NGT drainage, NPO, IV fluids. His symptoms resolved, he started passing gas by day 1 on admission, the NGT was removed and he was started on clear liquids which were gradually advanced to 1800 ADA diet. He tolerated the diet, had a regular bowel movement by day 2 on admission. Serial abdominal xrays revealed nonspecific bowel gas pattern by day 1 and 2 and he was discharged home on hospital day 2. Physical Exam Vital Signs: Temp Pulse Resp BP Pulse Ox 98.4 F 68 16 126/70 H 100 06/10/17 11:46 06/10/17 11:46 06/10/17 11:46 06/10/17 11:46 06/10/17 11:46 Intake & Output 06/09/17 06/10/17 06/11/17 06:59 06:59 06:59 Intake Total 1400 1880 Output Total 1200 1500 Balance 200 380 Weight 68.4 kg 68.8 kg General appearance: PRESENT: no acute distress Head exam: PRESENT: atraumatic, normocephalic Eye exam: PRESENT: conjunctiva pink, EOMI, PERRLA. ABSENT: scleral icterus Ear exam: PRESENT: normal external ear exam Mouth exam: PRESENT: moist, tongue midline Neck exam: ABSENT: carotid bruit, JVD, lymphadenopathy, thyromegaly Respiratory exam: PRESENT: clear to auscultation payton. ABSENT: rales, rhonchi, wheezes Cardiovascular exam: PRESENT: RRR. ABSENT: diastolic murmur, rubs, systolic murmur GI/Abdominal exam: PRESENT: normal bowel sounds, soft, other - midline surgical scar. ABSENT: distended, guarding, mass, organolmegaly, rebound, tenderness Neurological exam: PRESENT: alert, awake, oriented to person, oriented to place , oriented to time, oriented to situation, CN II-XII grossly intact. ABSENT: motor sensory deficit Results Laboratory Results: 06/10/17 06:48 06/10/17 06:48 06/10/17 06/10/17 06:48 06:48 WBC 6.3 RBC 5.06 Hgb 14.7 Hct 42.2 MCV 84 MCH 29.1 MCHC 34.8 RDW 13.6 Plt Count 219 Seg Neutrophils % 65.7 Lymphocytes % 26.9 Monocytes % 5.7 Eosinophils % 1.3 Basophils % 0.4 Absolute Neutrophils 4.1 Absolute Lymphocytes 1.7 Absolute Monocytes 0.4 Absolute Eosinophils 0.1 Absolute Basophils 0.0 Sodium 136.1 L Potassium 4.5 Chloride 102 Carbon Dioxide 26 Anion Gap 8 BUN 6 L Creatinine 0.50 L Est GFR ( Amer) > 60 Est GFR (Non-Af Amer) > 60 Glucose 203 H Calcium 9.3 Impressions: Abdomen/Pelvis CT 06/08/17 00:00 IMPRESSION: 1. Multiple dilated small bowel loops with air-fluid levels and feces like material, worrisome for distal small bowel obstruction, probable transition point in the anterior midabdomen to the right of the umbilicus. 2. Malrotated ectopic left kidney. Chest X-Ray 06/08/17 00:00 IMPRESSION: 1. No acute radiographic finding in the chest. 2. Enteric tube with the tip at the gastroduodenal junction. Persistent gaseous distension of the small bowel in the visualized abdomen. KUB X-Ray 06/08/17 08:13 IMPRESSION: Nasogastric tube tip and side port in the stomach Acute Abdomen Series 06/10/17 05:00 IMPRESSION: Interval resolution of bibasilar atelectasis. Nonspecific bowel- gas pattern with no significant interval change. Plan Discharge Plan: He is discharged home with instructions to return to the ER if pain, nausea, vomiting return. Time Spent: Less than 30 Minutes
[2017-06-10 13:48] VITALS: BP 122/75
== END 2017-06-10 14:45 | disposition home or self-care (01) | DRG 390 ==
LOC: ER 23:09 → EH 06-08 02:23 → 2N 06-08 12:09
PROVIDERS: ATTEND Surgery
PROC: 0D9670Z Drainage of Stomach with Drainage Device, Via Natural or Artificial Opening (ICD-10-PCS; principal; 2017-06-08)
DX: K56.609 Unspecified intestinal obstruction, unspecified as to partial versus complete obstruction (principal); E11.9 Type 2 diabetes mellitus without complications; F17.210 Nicotine dependence, cigarettes, uncomplicated; Z90.49 Acquired absence of other specified parts of digestive tract; Z79.84 Long term (current) use of oral hypoglycemic drugs
CPT/HCPCS: 36415; 71045; 74018; 74022; 74177; 80048; 80053; 81001; 82962; 83036; 83690; 85025; 99285; J1650; J1815; J2250; J2270; J2405; J2765; J3480; J3490; J7030

== ENCOUNTER 2018-06-18 02:59 | Inpatient (IN) | payer SELFPAY ==
[2018-06-18] MEDS ORDERED: ONDANSETRON HCL INJ/PF 4 MG/2 ML SDV IV ONE (03:19)
[2018-06-18] MEDS ORDERED: MORPHINE SULFATE 10 MG/ML INJ IV ONE ×2 (03:19→05:25)
[2018-06-18] MEDS ORDERED: NORMAL SALINE 1000 ML 1,000 ML IV ONE ×2 (03:19→05:55)
--- NOTE | 2018-06-18 03:21 | ER Document Report ---
ED GI/ <CAMILLE BETANCOURT - Last Filed: 06/18/18 03:37> - General TRAVEL OUTSIDE OF THE [place] IN LAST 30 DAYS: No <JASON LARA - Last Filed: 06/18/18 07:11> - General Chief Complaint: Abdominal Pain Stated Complaint: NAUSEA Time Seen by Provider: 06/18/18 03:14 Notes: Patient is a 52-year-old male that comes emergency department for chief complaint of severe sudden onset abdominal pain in his mid abdomen that started last night at about 2100. Pain is gotten worse. He reports nausea but denies vomiting. He did have a normal looking bowel movement yesterday. He denies fever or chills. He reports a history of hemicolectomy secondary to an infection over a decade ago, he has had of small bowel obstruction in the past, he also reports a history of appendectomy. He has type II diabetes. He states he used to take "pills" for this, currently is off of it, does not have a primary care provider. He denies flank pain, chest pain, or any other complaints. (JASON LARA) - Related Data Allergies/Adverse Reactions: Kiwi Allergy (Intermediate, Uncoded 05/05/16 16:25) Hives Past Medical History - General Information source: Patient - Social History Smoking Status: Never Smoker Frequency of alcohol use: None Drug Abuse: None Lives with: Family Family History: Reviewed & Not Pertinent, Other - There is no history of inflammatory bowel disease - Past Medical History Cardiac Medical History: Denies: Hx Congestive Heart Failure, Hx Heart Attack, Hx Hypercholesterolemia, Hx Hypertension Endocrine Medical History: Reports: Hx Diabetes Mellitus Type 2 Renal/ Medical History: Denies: Hx Peritoneal Dialysis Psychiatric Medical History: Denies: Hx Depression Past Surgical History: Reports: Hx Abdominal Surgery - Partial bowel resection, Hx Appendectomy, Other - Exploratory laparotomy, right hemicolectomy for an infection 2000, [place] - Immunizations Hx Diphtheria, Pertussis, Tetanus Vaccination: No <JASON LARA - Last Filed: 06/18/18 07:11> Review of Systems - Review of Systems Constitutional: No symptoms reported EENT: No symptoms reported Cardiovascular: No symptoms reported Respiratory: No symptoms reported Gastrointestinal: See HPI Genitourinary: No symptoms reported Male Genitourinary: No symptoms reported Musculoskeletal: No symptoms reported Skin: No symptoms reported Hematologic/Lymphatic: No symptoms reported Neurological/Psychological: No symptoms reported <JASON LARA - Last Filed: 06/18/18 07:11> Physical Exam <JASON LARA - Last Filed: 06/18/18 07:11> - Vital signs Vitals: Temp Pulse Resp BP Pulse Ox 97.4 F 71 24 H 123/63 100 06/18/18 03:07 06/18/18 03:07 06/18/18 03:07 06/18/18 03:07 06/18/18 03:07 - Notes Notes: GENERAL: Alert, appears to be in distress, grimacing and groaning HEAD: Normocephalic, atraumatic. EYES: Pupils equal, round, and reactive to light. Extraocular movements intact. ENT: Oral mucosa moist, tongue midline. Oropharynx unremarkable. Airway patent. Nares patent, no nasal septal hematoma, TM's intact. NECK: Full range of motion. Supple. Trachea midline. LUNGS: Clear to auscultation bilaterally, no wheezes, rales, or rhonchi. No respiratory distress. HEART: Regular rate and rhythm. No murmur ABDOMEN: There is a midline scar of the abdomen, this is old, there is tenderness in both the upper and lower abdomen in every quadrant, no severe distention. GENITOURINARY: No acute findings. EXTREMITIES: Moves all 4 extremities spontaneously. No edema, normal radial and dorsalis pedis pulses bilaterally. No cyanosis. BACK: no cervical, thoracic, lumbar midline tenderness. No saddle anesthesia, normal distal neurovascular exam. NEUROLOGICAL: Alert and oriented x3. Normal speech. [cranial nerves II through XII grossly intact]. PSYCH: Agitated SKIN: Warm, dry, normal turgor. No rashes or lesions noted. (JASON LARA) Course - Laboratory Result Diagrams: 06/18/18 03:20 06/18/18 03:20 <CAMILLE BETANCOURT - Last Filed: 06/18/18 03:37> - Laboratory Result Diagrams: 06/18/18 03:20 06/18/18 03:20 <JASON LARA - Last Filed: 06/18/18 07:11> - Re-evaluation Re-evalutation: 06/18/18 03:37 Patient was initially evaluated by the PAJason. Is concerned the patient seems to be in a lot of pain and is concerned for possible perforation. Patient does have history of previous bowel resection. He has a history of previous bowel obstructions. He says this feels similar to when he had obstructions in the past. Has had some vomiting. On exam patient's abdomen is diffusely tender however it is soft. Bedside FAST exam does not show any evidence of free fluid in abdomen. Upright abdomen and portable chest does not show evidence of free air. Go forward with pain control, labs, and further imag ing as necessary. Dictation of this chart was performed using voice recognition software; therefore, there may be some unintended grammatical errors. (CAMILLE BETANCOURT) Patient in obvious discomfort on initial evaluation, vital signs are. CBC unremarkable. Chemistry showing hyperglycemia without acidosis. Lactic acid not elevated. Lipase unremarkable. X-ray without free air. Discussed with patient, agreeable to contrast. CAT scan with oral and IV contrast completed, indicating small bowel obstruction with transition point. Placing NG tube. Discussed with patient. Will discuss with surgical list, will discuss admission, patient states agreement with plan. Unfortunately a size 12 was placed, I checked the patient at bedside and this is not draining very well. Will need larger. 06/18/18 07:[address] Holliday, he will evaluate the patient. (JASON LARA) - Vital Signs Vital signs: Temp Pulse Resp BP Pulse Ox 97.4 F 71 16 130/79 H 98 06/18/18 03:07 06/18/18 03:07 06/18/18 06:01 06/18/18 06:01 06/18/18 06:01 - Laboratory Laboratory results interpreted by me: 06/18/18 06/18/18 03:20 06:15 Carbon Dioxide 21 L Creatinine 0.41 L Glucose 304 H Direct Bilirubin 0.5 H Alkaline Phosphatase 128 H Urine Glucose (UA) >=500 H Urine Ketones 20 H Urine Urobilinogen 2.0 H Discharge <CAMILLE BETANCOURT - Last Filed: 06/18/18 03:37> - Discharge Admitting Provider: Surgicalist Unit Admitted: Surgical Floor <JASON LARA - Last Filed: 06/18/18 07:11> - Discharge Clinical Impression: SBO (small bowel obstruction) Abdominal pain Qualifiers: Abdominal location: generalized Qualified Code(s): R10.84 - Generalized abdominal pain Condition: Stable Disposition: ADMITTED INPATIENT
[2018-06-18 03:30] LABS: ABSOLUTE BASOPHILS # (AUTO) 0.1 10^3/uL (0.0-0.2); ABSOLUTE EOSINOPHILS # (AUTO) 0.1 10^3/uL (0.0-0.6); ABSOLUTE LYMPHOCYTES (AUTO) 2.3 10^3/uL (0.5-4.7); ABSOLUTE MONOCYTES (AUTO) 0.5 10^3/uL (0.1-1.4); BASOPHILS % (AUTO) 1.2 % (0-2); HEMATOCRIT 44.1 % (37.9-51.0); HEMOGLOBIN 15.2 g/dL (13.5-17.0); LYMPHOCYTES % (AUTO) 32.4 % (13-45); MEAN CORPUSCULAR HEMOGLOBIN 28.2 pg (27.0-33.4); MEAN CORPUSCULAR HGB CONC 34.6 g/dL (32.0-36.0); MEAN CORPUSCULAR VOLUME 82 fl (80-97); MONOCYTES % (AUTO) 7.1 % (3-13); PLATELET COUNT 263 10^3/uL (150-450); RED BLOOD COUNT 5.41 10^6/uL (4.35-5.55); RED CELL DISTRIBUTION WIDTH 13.7 % (11.5-14.0); SEGMENTED NEUTROPHILS % (AUTO) 57.3 % (42-78); TOTAL CELLS COUNTED % (AUTO) 100 %; WHITE BLOOD COUNT 7.1 10^3/uL (4.0-10.5)
--- NOTE | 2018-06-18 03:52 | RADIOLOGY REPORT (SQ) ---
EXAM DESCRIPTION: XR CHEST 1 VIEW COMPLETED DATE/TME: 06/18/2018 03:21 CLINICAL HISTORY: 52 years, Male, free air? COMPARISON: None. NUMBER OF VIEWS: One TECHNIQUE: Upright images of the chest LIMITATIONS: None. FINDINGS: No intraperitoneal free air. The lungs are clear. The heart is normal in size. There is no pneumothorax or pleural effusion. The bones are unremarkable. IMPRESSION: No acute cardiopulmonary abnormality. No intraperitoneal free air copyright 2010 [employer]- All Rights Reserved
[2018-06-18 03:55] LABS: ALANINE AMINOTRANSFERASE 22 U/L (21-72); ALBUMIN 4.4 g/dL (3.5-5.0); ALKALINE PHOSPHATASE 128 U/L (38-126); ANION GAP 10 (5-19); ASPARTATE AMINO TRANSFERASE 26 U/L (17-59); BILIRUBIN,DIRECT 0.5 mg/dL (0.0-0.4); BILIRUBIN,TOTAL 0.7 mg/dL (0.2-1.3); BLOOD UREA NITROGEN 11 mg/dL (7-20); CALCIUM 9.4 mg/dL (8.4-10.2); CARBON DIOXIDE 21 mmol/L (22-30); CHLORIDE 107 mmol/L (98-107); GLUCOSE 304 mg/dL (75-110); LIPASE 136.9 U/L (23-300); SODIUM 138.2 mmol/L (137-145); TOTAL PROTEIN 7.4 g/dL (6.3-8.2)
[2018-06-18] MEDS ORDERED: LIDOCAINE 1% INJ-PF (10 MG/ML) 30 ML SDV NEB ONE (05:54)
--- NOTE | 2018-06-18 06:11 | RADIOLOGY REPORT (SQ) ---
EXAM DESCRIPTION: CT ABDOMEN PELVIS WITH IV CONTRAST COMPLETED DATE/TME: 06/18/2018 00:00 CLINICAL HISTORY: 52 years Male, sharp mid abd pain, nausea, hx obstruction Comparison: 06/08/17 Technique: IV contrast. Coronal and sagittal reformat. This exam was performed according to our departmental dose-optimization program, which includes automated exposure control, adjustment of the mA and/or kV according to patient size and/or use of iterative reconstruction technique. [facility]: Dose Right [facility]: CareDose [facility]: Dose Right [facility]: Teradose 4D [facility]: Sanrad LIMITATIONS: None Findings: Dilated small bowel with air-fluid levels includes a 3.3 cm loop in the anterior pelvis, focal zone of transition at the anterior lower abdomen, image 48 of series 3 with fecalization prior to the zone of transition. Left kidney is ectopic anterior to the right kidney. Surgical clips and suture material of the bowel, right upper abdominal quadrant. Partial colectomy. No ascites. No pneumoperitoneum. Appendectomy. Inferior thorax, liver, gallbladder, pancreas, spleen, adrenals, renal system, gastrointestinal tract, pelvic organs, lymphatics, vasculature, and musculoskeleton appear otherwise unremarkable. IMPRESSION: Moderate grade small bowel obstruction with focal transition. Similar pattern on prior exam, 06/08/2017.
[2018-06-18 06:26] LABS: APPEARANCE,URINE CLEAR; BILIRUBIN,URINE NEGATIVE (NEGATIVE); COLOR,URINE YELLOW; GLUCOSE, URINE >=500 mg/dL (NEGATIVE); KETONES,URINE 20 mg/dL (NEGATIVE); LEUKOCYTE ESTERASE,URINE NEGATIVE (NEGATIVE); NITRITE,URINE NEGATIVE (NEGATIVE); PROTEIN,URINE NEGATIVE (NEGATIVE); URINE SPECIFIC GRAVITY 1.044
--- NOTE | 2018-06-18 07:27 | RADIOLOGY REPORT (SQ) ---
EXAM DESCRIPTION: XR ABDOMEN 1 VIEW (KUB) COMPLETED DATE/TME: 06/18/2018 06:54 CLINICAL HISTORY: 52 years, Male, confirm ng-tube placement COMPARISON: 06/10/2017 NUMBER OF VIEWS: One TECHNIQUE: AP and upright view of the abdomen LIMITATIONS: None. FINDINGS: There is no intraperitoneal free air. The side-port for the nasogastric tube lies near the gastroesophageal junction. IV contrast is noted within the right collecting system. Oral contrast is noted within the small bowel. Small bowel measures up to 2.5 cm in diameter. IMPRESSION: Side-port for the nasogastric tube is near the gastroesophageal junction. Recommend advancement by at least 6 cm. copyright 2010 [employer]- All Rights Reserved
[2018-06-18] MEDS ORDERED: GLUCAGON,HUMAN RECOMB 1 MG INJ IM PRN (08:29)
[2018-06-18] MEDS ORDERED: DEXTROSE 40% GEL 15 GM TUBE PO PRN ×2 (08:29)
[2018-06-18] MEDS ORDERED: DEXTROSE 50%-WATER 25 GM/50 ML DISP.SYRIN IV PRN ×2 (08:29)
[2018-06-18] MEDS ORDERED: ONDANSETRON HCL INJ/PF 4 MG/2 ML SDV IV PRN (08:31)
--- NOTE | 2018-06-18 08:38 | PDOC H&P ---
History of Present Illness Admission Date/PCP: 06/18/18 07:25 Patient complains of: Abdominal pain nausea and vomiting History of Present Illness: OSMAR LANDRY is a 52 year old male Who presents to the emergency department with acute onset abdominal pain nausea and vomiting decreased gas and stool starting 12 midnight. Patient seen in the emergency department where he is found to have a distended abdomen and diffuse abdominal tenderness. CT scan of the abdomen and pelvis was performed without oral contrast which showed findings consistent with a small bowel obstruction. Surgery was consulted, patient was advised admission. A 12 Iranian nasogastric tube was initially inserted with no results. This was replaced with a 18-gauge nasogastric tube. Drainage was minimal. Vision stated he was feeling better. Patient's clinical presentation, as well as CT scan findings consistent with previous small bowel obstructions 2016, 2017 and 2018, all requiring admission to [facility], all managed nonoperatively with bowel rest and nasogastric decompression. Patient has a history of untreated diabetes mellitus. Patient's initial operations included open appendectomy 20 years ago in [facility], and exploratory laparotomy, right hemicolectomy in [place] in 2000 for presumed benign infectious disease, likely diverticulitis. Past Medical History Past Medical History: Uncontrolled diabetes Cardiac Medical History: Denies: Congestive Heart Failure, Myocardial Infarction, Hyperlipidema, Hypertension Endocrine Medical History: Reports: Diabetes Mellitus Type 2 Psychiatric Medical History: Denies: Depression Past Surgical History Past Surgical History: Appendectomy, exploratory laparotomy right hemicolectomy Past Surgical History: Reports: Appendectomy, Other - Exploratory laparotomy, right hemicolectomy for an infection [facility] Social History Lives with: Family Smoking Status: Never Smoker Frequency of Alcohol Use: None Hx Recreational Drug Use: No Drugs: None Hx Prescription Drug Abuse: No Family History Family History: Reviewed & Not Pertinent, Other - There is no history of inflammatory bowel disease Parental Family History Reviewed: Yes Children Family History Reviewed: Yes Sibling(s) Family History Reviewed.: Yes Medication/Allergy Home Medications: Metformin HCl 500 mg PO TID #90 tablet 06/10/17 Allergies/Adverse Reactions: Kiwi Allergy (Intermediate, Uncoded 05/05/16 16:25) Hives Review of Systems Constitutional: PRESENT: as per HPI Eyes: ABSENT: visual disturbances Ears: ABSENT: hearing changes Respiratory: ABSENT: cough, hemoptysis Gastrointestinal: PRESENT: as per HPI Genitourinary: ABSENT: dysuria, hematuria Musculoskeletal: ABSENT: joint swelling Integumentary: ABSENT: rash, wounds Hematologic/Lymphatic: ABSENT: easy bleeding, easy bruising Physical Exam Vital Signs: Temp Pulse Resp BP Pulse Ox 97.4 F 71 18 143/85 H 100 06/18/18 03:07 06/18/18 03:07 06/18/18 08:01 06/18/18 08:01 06/18/18 08:01 Intake & Output 06/17/18 06/18/18 06/19/18 06:59 06:59 06:59 Intake Total 1000 1000 Output Total 30 Balance 970 1000 Weight 59.9 kg General appearance: PRESENT: mild distress Head exam: PRESENT: normocephalic Eye exam: PRESENT: other - Sclera erythematous after nasogastric tube insertion Mouth exam: PRESENT: dry mucosa Neck exam: PRESENT: full ROM Respiratory exam: PRESENT: clear to auscultation payton Cardiovascular exam: PRESENT: RRR Pulses: PRESENT: normal carotid pulses, normal radial pulses, normal femoral pulses GI/Abdominal exam: PRESENT: other - Abdomen slightly distended no peritoneal signs no rigidity. Midline scar and right lower quadrant scar consistent with previous surgery Rectal exam: PRESENT: deferred Extremities exam: PRESENT: full ROM Musculoskeletal exam: PRESENT: full ROM Neurological exam: PRESENT: other - Anxious otherwise oriented to place person and situation Psychiatric exam: PRESENT: anxious Results Laboratory Results: 06/18/18 03:20 06/18/18 03:20 06/18/18 06/18/18 06/18/18 03:20 03:20 03:20 WBC 7.1 RBC 5.41 Hgb 15.2 Hct 44.1 MCV 82 MCH 28.2 MCHC 34.6 RDW 13.7 Plt Count 263 Seg Neutrophils % 57.3 Lymphocytes % 32.4 Monocytes % 7.1 Eosinophils % 2.0 Basophils % 1.2 Absolute Neutrophils 4.0 Absolute Lymphocytes 2.3 Absolute Monocytes 0.5 Absolute Eosinophils 0.1 Absolute Basophils 0.1 Sodium 138.2 Potassium 4.0 Chloride 107 Carbon Dioxide 21 L Anion Gap 10 BUN 11 Creatinine 0.41 L Est GFR ( Amer) > 60 Est GFR (Non-Af Amer) > 60 Glucose 304 H Lactic Acid 1.5 Calcium 9.4 Total Bilirubin 0.7 AST 26 ALT 22 Alkaline Phosphatase 128 H Total Protein 7.4 Albumin 4.4 Lipase 136.9 Urine Color Urine Appearance Urine pH Ur Specific [place] Urine Protein Urine Glucose (UA) Urine Ketones Urine Blood Urine Nitrite Ur Leukocyte Esterase Urine WBC (Auto) Urine RBC (Auto) 06/18/18 06:15 WBC RBC Hgb Hct MCV MCH MCHC RDW Plt Count Seg Neutrophils % Lymphocytes % Monocytes % Eosinophils % Basophils % Absolute Neutrophils Absolute Lymphocytes Absolute Monocytes Absolute Eosinophils Absolute Basophils Sodium Potassium Chloride Carbon Dioxide Anion Gap BUN Creatinine Est GFR ( Amer) Est GFR (Non-Af Amer) Glucose Lactic Acid Calcium Total Bilirubin AST ALT Alkaline Phosphatase Total Protein Albumin Lipase Urine Color YELLOW Urine Appearance CLEAR Urine pH 7.0 Ur Specific [place] 1.044 Urine Protein NEGATIVE Urine Glucose (UA) >=500 H Urine Ketones 20 H Urine Blood NEGATIVE Urine Nitrite NEGATIVE Ur Leukocyte Esterase NEGATIVE Urine WBC (Auto) 1 Urine RBC (Auto) 1 Impressions: Abdomen/Pelvis CT 06/18/18 00:00 IMPRESSION: Moderate grade small bowel obstruction with focal transition. Similar pattern on prior exam, 06/08/2017. Chest X-Ray 06/18/18 03:21 IMPRESSION: No acute cardiopulmonary abnormality. No intraperitoneal free air copyright 2010 [employer]- All Rights Reserved KUB X-Ray 06/18/18 06:54 IMPRESSION: Side-port for the nasogastric tube is near the gastroesophageal junction. Recommend advancement by at least 6 cm. copyright 2010 [employer]- All Rights Reserved Assessment & Plan - Diagnosis (1) SBO (small bowel obstruction) Is this a current diagnosis for this admission?: Yes Plan: Impression: Recurrent episodic small bowel obstruction with clinical and radiographic presentation nearly identical to previous episodes over the last 3 years. Patient not in extremis, no evidence of peritonitis; currently being managed nonoperatively. Recommendations: 1. Admit to surgical service, keep n.p.o. IV fluids including fluid boluses to treat dehydration, and nasogastric decompression and proton pump inhibitor. 2. We will place on sliding scale to manage elevated hemoglobin. 3. Follow patient clinically and with imaging in a.m.; if patient fails to open up, exploratory laparotomy lysis of adhesions may be required (2) Dehydration Is this a current diagnosis for this admission?: Yes (3) Abdominal pain Qualifiers: Abdominal location: generalized Qualified Code(s): R10.84 - Generalized abdominal pain Is this a current diagnosis for this admission?: Yes (4) Diabetes Qualifiers: Diabetes mellitus type: type 2 - Time Time Spent: 30 to 50 Minutes Critical Time spent with patient: 15-24 minutes Medications reviewed and adjusted accordingly: Yes Anticipated discharge: Home - Inpatient Certification Based on my medical assessment, after consideration of the patient's comorbidities, presenting symptoms, or acuity I expect that the services needed warrant INPATIENT care.: Yes I certify that my determination is in accordance with my understanding of Medicare's requirements for reasonable and necessary INPATIENT services [42 CFR 412.3e].: Yes Medical Necessity: Need For IV Fluids, Need for Surgery
[2018-06-18] MEDS ORDERED: KETOROLAC TROMETHAMINE INJ/PF 30 MG/1 ML SDV IV ONE (08:42)
[2018-06-18] MEDS: NORMAL SALINE 1000 ML 1,000 ML IV PRN ×3 (09:14→23:07)
[2018-06-18] MEDS: FAMOTIDINE INJ/PF 20 MG/2 ML SDV IV SCH ×2 (09:35→23:00)
[2018-06-18] MEDS: INSULIN LISPRO 100 UNIT/ML 3 ML VIAL SUBCUT SCH ×2 (11:58→18:12)
[2018-06-18] MEDS ORDERED: KETOROLAC TROMETHAMINE INJ/PF 30 MG/1 ML SDV ONE (17:07)
[2018-06-19] MEDS: INSULIN LISPRO 100 UNIT/ML 3 ML VIAL SUBCUT SCH ×3 (02:24→15:58)
[2018-06-19] MEDS: NORMAL SALINE 1000 ML 1,000 ML IV PRN ×2 (04:43→10:18)
--- NOTE | 2018-06-19 08:10 | RADIOLOGY REPORT (SQ) ---
EXAM DESCRIPTION: ABDOMEN 2 VIEWS COMPLETED DATE/TIME: 06/19/2018 8:00 am REASON FOR STUDY: interval change in sbo COMPARISON: CT abdomen pelvis 06/18/2018 Abdomen films 06/18/2018, 06/10/2017, 06/09/2017, 05/06/2016 NUMBER OF VIEWS: Two views. TECHNIQUE: Supine and upright radiographic images of the abdomen acquired. LIMITATIONS: None. FINDINGS: FREE AIR: None. No abnormal gas collections. LUNG BASES: Clear. BOWEL GAS PATTERN: Oral contrast given for CT exam 06/18/2018 0537 hours is seen in the transverse and descending colon. However, there are still air-fluid levels in distended left upper quadrant small bowel loops worrisome for persistent partial small bowel obstruction. Stomach is decompressed by a n asogastric tube. Right upper quadrant anastomotic barbara are present. CALCIFICATIONS: No suspicious calcifications. SOFT TISSUES: No gross mass or suggestion of organomegaly. HARDWARE: Right upper quadrant anastomotic barbara, nasogastric tube tip and side port in the stomach BONES: No acute fracture. No worrisome bone lesions. OTHER: No other significant finding. IMPRESSION: Persistent air-fluid levels with left upper quadrant small bowel loops worrisome for par tial small bowel obstruction. Oral contrast given for CT 06/18/2018 0537 hours is seen in the transverse and descending colon compat ible with partial small bowel obstruction TECHNICAL DOCUMENTATION: JOB ID: [id number] [employer]- All Rights Reserved Reading location - IP/workstation name: [email or web address]
[2018-06-19] MEDS ORDERED: ACETAMINOPHEN 325 MG TABLET PO PRN (08:18)
[2018-06-19] MEDS: FAMOTIDINE INJ/PF 20 MG/2 ML SDV IV SCH (10:18)
--- NOTE | 2018-06-19 11:54 | PDOC PROGRESS REPORT ---
Subjective Progress Note for:: 06/19/18 Subjective:: passing flatus, NGT clamped tolerated Reason For Visit: SMALL BOWEL OBSTRUCTION Physical Exam Vital Signs: Temp Pulse Resp BP Pulse Ox 97.7 F 85 18 144/78 H 97 06/19/18 08:56 06/19/18 08:56 06/19/18 08:56 06/19/18 08:56 06/19/18 08:56 Intake & Output 06/18/18 06/19/18 06/20/18 06:59 06:59 06:59 Intake Total 1000 3973 1000 Output Total 30 1750 225 Balance 970 2223 775 Weight 59.9 kg 62.1 kg General appearance: PRESENT: no acute distress GI/Abdominal exam: PRESENT: distended, soft Results Laboratory Results: 06/18/18 03:20 06/18/18 03:20 Impressions: Abdomen/Pelvis CT 06/18/18 00:00 IMPRESSION: Moderate grade small bowel obstruction with focal transition. Similar pattern on prior exam, 06/08/2017. Chest X-Ray 06/18/18 03:21 IMPRESSION: No acute cardiopulmonary abnormality. No intraperitoneal free air copyright 2010 [employer]- All Rights Reserved KUB X-Ray 06/18/18 06:54 IMPRESSION: Side-port for the nasogastric tube is near the gastroesophageal junction. Recommend advancement by at least 6 cm. copyright 2010 [employer]- All Rights Reserved Abdomen X-Ray 06/19/18 07:00 IMPRESSION: Persistent air-fluid levels with left upper quadrant small bowel loops worrisome for partial small bowel obstruction. Oral contrast given for CT 06/18/2018 0537 hours is seen in the transverse and descending colon compatible with partial small bowel obstruction Assessment & Plan - Plan Summary Plan Summary: A/ partial SBO, postsurgical, recurrent Flatus present Oral contrast from yesterday's CT scan in colon NGT clamping toerated P/ remove NGT if residual < 150 mL Full liquid diet Discharge to home today if tolerated Continue full liquid diet x 3 days, reintroduce solid food after that time Drink plenty of fluids during and in between meals Avoid all fibres Use Miralax, Colace, or milk of Magnesia for constipation F/u with surgery Clinic in 2 weeks with DONALD Botello
[2018-06-19 17:24] VITALS: BP 133/75
--- NOTE | 2018-06-20 14:12 | DISCHARGE SUMMARY E ---
Discharge Summary NAME: OSMAR LANDRY : 1965 AGE: 52Y ADMITTED: 06/18/2018 DISCHARGED: 06/19/2018 FINAL DIAGNOSES: 1. Partial mechanical small bowel obstruction, recurrent, postsurgical. 2. Dehydration. PROCEDURE: None. COMPLICATIONS: None. HOSPITAL COURSE: A 52-year-old [place]-speaking male admitted on June 19 with a history of abdominal distention, obstipation, nausea and vomiting, found to have a mechanical small bowel obstruction. The patient has a history of recurrent episodes of partial mechanical small bowel obstruction following an appendectomy and a right colectomy for benign condition about 4 years ago. The patient had a total of 4 episodes similar to the current one, which all resolved spontaneously. Patient was admitted, kept n.p.o., on IV fluids. Nasogastric tube was inserted, with minimal output. A CT scan of the abdomen and pelvis with oral contrast was performed, which revealed a partial mechanical small bowel obstruction with transition point in the small bowel. The patient was then kept overnight, fasting, for bowel rest. The day after, an x-ray of the abdomen demonstrated contrast to the colon. The nasogastric tube was clamped for 4 hours. Following unclamping, minimal residual was noted, and the patient's nasogastric tube was removed. His diet was advanced to a full liquid diet. The patient was discharged to home in the evening of June 19. He was given a full liquid diet for 3 days. Afterwards, they can advance the diet to solid. He was encouraged to avoid completely vegetable fibers to prevent the recurrence of partial mechanical small bowel obstruction and to drink plenty of fluids in between and during meals. Followup appointment in the office in 2 weeks with DONALD Daniels. Tylenol for pain. Activities as tolerated. DICTATING PHYSICIAN: ROBERT HOUSTON M.D. [id number] PHY#: [id number] ID: [id number] JOB#: [id number] ACCT: [id number] cc:DONALD JOHNSON M.D. >
--- NOTE | 2018-06-21 08:38 | RADIOLOGY REPORT (SQ) ---
EXAM DESCRIPTION: KUB/ABDOMEN (SINGLE VIEW) COMPLETED DATE/TIME: 06/21/2018 5:17 am REASON FOR STUDY: FREE AIR? COMPARISON: Chest film 06/18/2018 Abdominal films 06/10/2017, 06/09/2017 NUMBER OF VIEWS: One view. TECHNIQUE: Upright radiographic image of the abdomen acquired. LIMITATIONS: None. FINDINGS: No subdiaphragmatic free air. BOWEL GAS PATTERN: Few air-fluid levels in small bowel loops in the mid epigastrium, could represent sentinel loops from inflammation or could reflect small bowel obstruction. CALCIFICATIONS: No suspicious calcifications. SOFT TISSUES: No gross mass or suggestion of organomegaly. HARDWARE: Surgical clips in the right upper quadrant BONES: No acute fracture. No worrisome bone lesions. OTHER: No other significant finding. IMPRESSION: Surgical clips in the right upper quadrant. Few air-fluid levels mildly dilated mid epi gastric small bowel loops. Question early or partial small bowel obstruction. No subdiaphragmatic free air TECHNICAL DOCUMENTATION: JOB ID: [id number] [employer]- All Rights Reserved Reading location - IP/workstation name: [email or web address]
== END 2018-06-19 17:40 | disposition home or self-care (01) | DRG 390 ==
LOC: ER 02:59 → EH 07:25 → 2N 08:55
PROVIDERS: ATTEND Surgery
PROC: 0D9670Z Drainage of Stomach with Drainage Device, Via Natural or Artificial Opening (ICD-10-PCS; principal; 2018-06-18)
DX: K56.690 Other partial intestinal obstruction (principal); E86.0 Dehydration; E11.9 Type 2 diabetes mellitus without complications; Z90.49 Acquired absence of other specified parts of digestive tract; Z79.84 Long term (current) use of oral hypoglycemic drugs
CPT/HCPCS: 36415; 71045; 74018; 74019; 74177; 80053; 81001; 82962; 83605; 83690; 85025; 96361; 96374; 96375; 96376; 99285; J1815; J1885; J2270; J2405; J3490; J7030; S0028